=== PATIENT | male | born 1960 | race Caucasian/White ===

== ENCOUNTER 2020-03-23 10:29 | Outpatient (REF) | payer MEDICAID, SELFPAY ==
--- NOTE | 2020-03-23 10:41 | MR_ITS ---
EXAMINATION: MR KNEE WITHOUT CONTRAST, RIGHT CLINICAL INFORMATION: Right knee pain COMPARISON: Radiographs 03/06/2020 TECHNIQUE: MRI of the knee without contrast was performed using routine sequences on a high-field scanner. FINDINGS: MENISCI: Medial Meniscus: Complex tear of the meniscal body with irregular horizontal tearing extending along the posterior horn Lateral Meniscus: Peripheral degeneration/fraying at the root of the anterior horn. LIGAMENTS: Cruciate: Longitudinal partial tearing along the medial aspect of the distal PCL. The anterior cruciate ligament appears intact. Collateral: Intact. MCL bursitis versus extension of the Seymour's cyst. EXTENSOR MECHANISM: Intact ARTICULAR CARTILAGE/BONE: Patellofemoral Compartment: Mild cartilage thinning and surface irregularity of the medial patellar facet and central patella. Medial Compartment: Cartilage thinning and surface irregularity throughout the weightbearing aspect. Small marginal osteophytes. Degenerative cysts at the anterior and posterior aspects of the tibia. Lateral Compartment: Normal JOINT FLUID AND BURSAE: Small joint effusion. There is a moderately sized Seymour's cyst with synovitis, extending distally deep to the pes anserinus. IMPRESSION: Complex tearing of the medial meniscus body with irregular horizontal tearing extending along the posterior horn. Moderate medial and mild patellofemoral compartment osteoarthritis small joint effusion. There is a moderately sized Seymour's cyst with synovitis extending distally deep to pes anserinus. MCL bursitis. Longitudinal partial tear of the distal PCL.
== END 2020-03-23 10:30 | disposition home or self-care (01) ==
LOC: HO.MRI 10:29
PROVIDERS: Visit Provider Orthopaedic Surgery
DX: S83.231A Complex tear of medial meniscus, current injury, right knee, initial encounter (principal); X58.XXXA Exposure to other specified factors, initial encounter; Y93.9 Activity, unspecified; Y92.9 Unspecified place or not applicable; Y99.9 Unspecified external cause status
CPT/HCPCS: 73721

== ENCOUNTER → 2020-04-04 14:28 | Outpatient (BNVA) | payer MEDICAID, SELFPAY | PROVIDERS: PCP Emergency Medicine; Referring Provider Emergency Medicine; Visit Provider Orthopaedic Surgery | DX: S83.231A Complex tear of medial meniscus, current injury, right knee, initial encounter (principal); M17.11 Unilateral primary osteoarthritis, right knee | CPT/HCPCS: 99214 ==

== ENCOUNTER → 2020-05-09 11:47 | Outpatient (BNVA) | payer MEDICAID, SELFPAY | PROVIDERS: PCP Emergency Medicine; Referring Provider Emergency Medicine; Visit Provider Physician Assistant | DX: Z76.89 Persons encountering health services in other specified circumstances (principal) ==

== ENCOUNTER → 2020-05-23 12:27 | Outpatient (BNVA) | payer MEDICAID, SELFPAY | PROVIDERS: Visit Provider Internal Medicine Cardiovascular Disease | DX: Z01.810 Encounter for preprocedural cardiovascular examination (principal); I77.71 Dissection of carotid artery | CPT/HCPCS: 93005; 99202 ==

== ENCOUNTER → 2020-07-03 12:59 | Outpatient (REF) | payer MEDICAID, SELFPAY ==
--- NOTE | 2020-07-03 13:01 | CA_ITS ---
Transthoracic Echocardiogram Patient (Last, First, Middle): Roger Muller, Gender: Male Date of : 1960 Age: 60 Procedure Date: 07/03/2020 Procedure Type: Transthoracic Echocardiogram Location: OP Height: 177.8 cm Weight: 97.52 kg BSA: 2.15 m2 Heart Rate: bpm BP: 130 / 90 mmHg Skirt Maker: LAKESHIA Gonzales MD: Alton Drew MD Resident Services Director: Xander Hand MD Symptoms: Z01.810 - Encounter for preprocedural cardiovascular examination Study Quality: Good ECG Rhythm: Sinus Conclusions: - Essentially normal study Findings Left Ventricle Normal left ventricular size, thickness, and systolic function. The visually estimated ejection fraction is between 60-65%. Diastolic function is normal for age. Right Ventricle Normal right ventricular cavity size and systolic function. Atria Both atria are normal in size. There is lipomatous hypertrophy of the interatrial septum. Interatrial shunt cannot be excluded. Aortic Valve Normal aortic valve structure and function. There is no aortic valve stenosis. There is no aortic valve regurgitation. Mitral Valve Normal mitral valve structure and function. There is trace mitral valve regurgitation. There is no mitral valve stenosis. Pulmonic Valve The pulmonic valve was not well visualized. Tricuspid Valve Normal tricuspid valve structure. There is trace tricuspid valve regurgitation. The right ventricular systolic pressure is normal. The right ventricular systolic pressure is 19 mmHg. Normal right atrial pressure. There is no evidence of pulmonary hypertension. Great Vessels All visible segments of the aorta are normal in size. The pulmonary artery was not well visualized. Venous The inferior vena cava is normal in size and collapses greater than 50% with inspiration. Pericardium/Pleural There is no evidence of pericardial effusion. Prior Study Comparison No prior study available for comparison. Measurements 2D Linear Measurements IVSd: 0.98 0.6-0.9/0.6-1.0 cm LVIDd: 4.61 3.9-5.3/4.2-5.9 cm LVIDd Index: 2.14 2.4-3.2/2.2-3.1 cm/m2 LVIDs: 3.26 2.0-3.6 cm LVPWd: 0.97 0.7-1.1 cm Ao Root: 3.70 2.1-3.5 cm LA Diam: 3.70 2.7-3.8/3.0-4.0 cm LAIDs Index: 1.72 1.5-2.3 cm/m2 LV Mass: 191.43 67-162/88-224 g LV Mass Index: 89.04 43-95/49-115 g/m2 LVOT Diam: 2.30 3.0+(-)1.3 cm 2D Systolic Function EF 4C: 64.80 >55% EF 2C: 57.60 >55% EF BiP: 62.50 >55% Mitral Valve MV Pk E: 0.83 MV PK A: 0.62 MV Decel Time: 312.00 E/A: 1.30 E'Lateral: 11.30 E'Medial: 8.81 E/E' Med: 9.40 E/E' Lat: 7.40 PHT: 91.00 MVA PHT: 2.42 Decel Conway: 2.67 Aortic Valve AoV Pk Faraz: 1.36 AoV Mn Faraz: 0.90 AoV VTI: 0.33 AoV Pk Grad: 7.00 Aov Mn Grad: 4.00 HO Cont.VTI: 3.16 LVOT LVOT Pk Faraz: 1.11 LVOT Mn Faraz: 0.69 LVOT VTI: 0.25 LVOT Pk Grad: 5.00 LVOT Mn Grad: 2.00 LVOT Diam: 2.30 LVOT Area: 4.15 Diastolic Function MV Pk E: 0.83 MV Pk A: 0.62 E/A: 1.30 E'Medial: 8.81 E/E' Med: 9.40 E' Laterial: 11.30 E/E' Lat: 7.40 Tricuspid Valve TR Pk Faraz: 2.01 TR Pk Grad: 16.00 RA Press: 3.00 RVSP: 19.00 Great Vessels Aorta Ao Root-2D: 3.70 2.0-3.7 cm Ao Asc: 3.50 2.1-3.4 cm Ao Arch: 3.00 Updated in Other Vendor System with Status of Final Xander Hand MD electronically signed on 07/04/2020 9:42:38 AM with status of Final
== END ==
LOC: HO.CARD 12:59
PROVIDERS: Visit Provider Internal Medicine Cardiovascular Disease
DX: Z01.810 Encounter for preprocedural cardiovascular examination (principal)
CPT/HCPCS: 93306

== ENCOUNTER → 2020-07-06 12:36 | Outpatient (BNVA) | payer MEDICAID, SELFPAY | PROVIDERS: Visit Provider Physician Assistant | DX: Z76.89 Persons encountering health services in other specified circumstances (principal) ==

== ENCOUNTER → 2020-08-09 06:07 | Day surgery (SDC) | payer MEDICAID, SELFPAY ==
[2020-06-26 08:50] VITALS: BMI 30.8
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
--- NOTE | 2020-08-09 06:38 | PC.NURSE ---
pt to preop large open area to back of operative knee with scabbed areas and scratches also noted to same knee. informed Dr. Mcghee surgery cancelled. pt upset state will be going to his office. Dr informed pt very upset about being cancelled feels no one is helping him.
== END ==
PROVIDERS: Visit Provider Orthopaedic Surgery
DX: S83.241A Other tear of medial meniscus, current injury, right knee, initial encounter (principal); M17.11 Unilateral primary osteoarthritis, right knee; Z53.9 Procedure and treatment not carried out, unspecified reason

== ENCOUNTER → 2020-11-06 11:16 | Outpatient (BNVA) | payer MEDICAID, SELFPAY | PROVIDERS: Visit Provider Physician Assistant | DX: Z12.11 Encounter for screening for malignant neoplasm of colon (principal); R21 Rash and other nonspecific skin eruption | CPT/HCPCS: 99212 ==

== ENCOUNTER 2020-11-16 09:41 | Outpatient (RCR) | payer MEDICAID, SELFPAY | END 2020-11-21 12:18 | disposition home or self-care (01) | LOC: HO.WCC 09:41 | PROVIDERS: Visit Provider Physician Assistant | DX: L02.415 Cutaneous abscess of right lower limb (principal); M71.21 Synovial cyst of popliteal space [Baker], right knee; R60.0 Localized edema; F17.210 Nicotine dependence, cigarettes, uncomplicated | CPT/HCPCS: 99212 ==

== ENCOUNTER 2021-02-21 07:55 | Outpatient (RCR) | payer MEDICAID, SELFPAY | END 2021-04-19 12:24 | disposition home or self-care (01) | LOC: HO.WCC 07:55 | PROVIDERS: PCP General Practice; Visit Provider Surgery | DX: Z09 Encounter for follow-up examination after completed treatment for conditions other than malignant neoplasm (principal); M71.21 Synovial cyst of popliteal space [Baker], right knee; L20.89 Other atopic dermatitis; M50.00 Cervical disc disorder with myelopathy, unspecified cervical region; F17.210 Nicotine dependence, cigarettes, uncomplicated | CPT/HCPCS: 11042; 99203; 99213 ==

== ENCOUNTER 2021-05-29 08:58 | Outpatient (RCR) | payer MEDICARE, MEDICAID, SELFPAY | END 2021-06-10 11:07 | disposition home or self-care (01) | LOC: HO.WCC 08:58 | PROVIDERS: PCP General Practice; Visit Provider Physician Assistant | DX: S00.412A Abrasion of left ear, initial encounter (principal); B02.7 Disseminated zoster; I10 Essential (primary) hypertension; F17.210 Nicotine dependence, cigarettes, uncomplicated; Z79.2 Long term (current) use of antibiotics | CPT/HCPCS: 99212 ==

== ENCOUNTER 2024-05-23 18:03 | Outpatient (REF) | payer MEDICARE, MEDICAID, SELFPAY ==
[2024-05-23 18:27] LABS: Barbiturates, Urine Not Detected (Not Detect)
== END 2024-05-23 18:04 | disposition home or self-care (01) ==
LOC: HO.HHCLNP 18:03
PROVIDERS: Visit Provider General Practice
DX: G89.29 Other chronic pain (principal)
CPT/HCPCS: 80307

== ENCOUNTER 2025-02-10 10:07 | Outpatient (REF) | payer MEDICARE, OTHER, SELFPAY ==
--- NOTE | ~2025-02-10 | XR_ITS ---
EXAMINATION: XR KNEE, LEFT CLINICAL INFORMATION: M25.569 - Pain in unspecified knee COMPARISON: Correlated to x-ray dated March 06, 2020 TECHNIQUE: AP in standing position both knees. Lateral and sunrise views of the left knee. FINDINGS: Joint space narrowing sclerosis along the articular surface involving the medial compartment of the right knee. Small marginal osteophyte formation lateral femoral condyle and lateral tibial plateau. Left knee demonstrates no acute cortical disruption or malalignment. No gross suprapatellar bursa joint effusion. Mild joint space narrowing involving the medial and lateral compartment. No lytic or blastic lesions. XR/XR knee LT 3V IMPRESSION: Moderate bicompartmental osteoarthrosis/osteoarthritis involving mostly the medial compartment right knee. Worsened since prior exam. Mild, bicompartmental osteoarthrosis/osteoarthritis, left knee Electronically signed by: Ervin [place] MD 02/10/2025 12:15 PM EDT
--- OUTSIDE RECORDS SUMMARY | 2025-02-13 11:11 | XMS_ITS | Encounter Summary ---
Author Organization [employer] Address [address] [place] [address] Care Team Providers Care Mgmt Analyst Name Role Phone Natalie Baxter MD Primary Care Provider [phone] Reason for Visit * Reason Comments Med Refill Encounter Details Date Type Department Care Team ([facility] Contact Info) Description 01/15/2024 Refill [facility] [address] [place], [place] [phone] Natalie Baxter MD [address] [place], [place] [phone] Social History Tobacco Use Types Packs/Day Years [...] Description 02/21/2025 10:00 AM EDT Clinical Support [facility] [address] [place] [address] Odilia Reynoso RN documented as of this encounter Visit Diagnoses Not on filedocumented in this encounter Care Teams Mgmt Analyst Relationship Specialty Start Date End Date Natalie Baxter MD [address] [place] [address] PCP - General Family Medicine 04/26/20 documented as of this encounter
--- OUTSIDE RECORDS SUMMARY | 2025-02-13 11:12 | XMS_ITS | Clinical Summary ---
Author Organization [employer] [facility] Address [address] [place] [address] Care Team Providers Care Hr Recruiter Name Role Phone Natalie Baxter MD Primary Care Provider [phone] Encounters Date Type Department Care Team Description 11/30/[address] [place] [address] Natalie Baxter MD 11/23/[address] [place] [phone] Natalie Baxter MD 11/21/[address] [place] [address] Physician, Pcp Unknown from Last [...] age to complete this topic Care Teams Hr Recruiter Relationship Specialty Start Date End Date Natalie Baxter MD [address] [place] [id number] PCP - General Optical Instrument Specialist 11/23/24
== END 2025-02-10 10:08 | disposition home or self-care (01) ==
LOC: HO.HOSX 10:07
PROVIDERS: Visit Provider Physician Assistant
DX: M17.0 Bilateral primary osteoarthritis of knee (principal); M25.562 Pain in left knee
CPT/HCPCS: 20610; 73562; J1010; J2003

== ENCOUNTER 2025-02-10 11:39 | Outpatient (AMB) | payer BC, MEDICAID, SELFPAY ==
--- OUTSIDE RECORDS SUMMARY | 2024-09-22 13:08 | XMS_ITS ---
Author Name [facility] [place] [facility] [place] [facility] [place] Address [address] [place] [address] Care Team Providers Care Ditching Machine Engineer Name Role Phone ONURFARHANA VEGALATAPIERRE Primary Care Provider Unavailab MICHELLE Tracy Primary Care Provider Unavail able Insurance Providers: All historical and current Section Date Range: From patient's date of to the date document was created. This section includes the names of all active insurance providers for the patient. Insurance Provider Type of Coverage Plan Name Start of Policy Coverage End of Policy Coverage Group Number Member ID Insurance Provider's Telephone Number Policy Waterman's Name Patient's Relationship to Policy Waterman [facility] (MEDICAID) MEDICAID PREMI UM ERICA MCGRATH Jun 22, 2014 [id number] Zoe GUERRERO ERRY PATIENT MEDICAID MEDICAID [facility] Mar 22, 2015 MEDICAI D [id number] Zoe GUERRERO ERRY PATIENT MEDICARE (WNR) MEDICARE (M) PART A Apr 22, 2021 PART A [id number] Zoe GUERRERO ERRY PATIENT MEDICARE (WNR) MEDICARE (M) PART B Apr 22, 2021 PART B [id number] Zoe GUERREROY PATIENT Selected Encounter This section includes the information on record at [place] for the Encounter. Date/Time Encounter Type Encounter Description Reason Pro vider Source Sep 22, 2024 05:08 PM Outpatient Encounter ADMIN PAT ACTIVTIES (MASNONCT) IHE Encounter Template Text not used by [place] Plan of Treatment: Future Appointments (+ 6 months) and Future Tests (+/- 45 days) The Plan of Treatment section includes future care activities for the patient from all [place] treatmentfacilities. This section includes future appointments and future orders which are active, pending or scheduled. Future Appointments This section includes appointments that were scheduled to occur 6 months from the date of the Encounter, up to a maximum of 20 appointments. The data comes from all [place] treatment facilities. Appointment Date/Time Appointment Type Appointme nt Facility Name October 31, 2024 11:00 AM AMBULATORY - MEDICINE [facility] Social History: Smoking Status (Most current) and Tobacco Use (All prior to encounter date) This section includes the most current, and the historical, smoking and tobacco- related health factors from the [place] facility where the Encounter took place. Current Smoking Status This section includes the most current smoking, or tobacco-related health factor, from the [place] facility where the Encounter took place. Date/Time Current Smoking Status Comment [facility] May 11, 2023 12:03 PM VA-TOBACCO USER EVERY DAY [place] [facility] [place] [facility] Tobacco Use History This section includes a history of the smoking, or tobacco-related health factors, that were collected on or before the date of the Encounter. The data comes from the [place] facility where the Encounter took place. Date/Time Smoking Status/Tobac co Use Comment Facility May 11, 2023 12:03 PM VA-TOBACCO USE 30 YEARS OR MORE [place] [facility] [place] [facility] May 11, 2023 12:03 PM VA-TOBACCO USE ADVICE [place] [facility] [place] [facility] May 11, 2023 12:03 PM VA-TOBACCO USE HELP DESK OPERATOR NO [place] [facility] [place] [facility] May 11, 2023 12:03 PM VA-TOBACCO USE MED NOTIFY PROVIDER would like 21 MG patches [place] [facility] [place] [facility] May 11, 2023 12:03 PM VA-TOBACCO USER EVERY DAY [place] [facility] [place] [facility] Feb 09, 2019 09:39 AM VA-TOBACCO USE > 15 LESS THAN 30 YEARS [facility] Feb 09, 2019 09:39 AM VA-TOBACCO USE ADVICE [facility] Feb 09, 2019 09:39 AM VA-TOBACCO USE HELP DESK OPERATOR NO [facility] Feb 09, 2019 09:39 AM VA-TOBACCO USE MED YES [facility] Feb 09, 2019 09:39 AM VA-TOBACCO USE WI 30 MIN OF WAKEUP [facility] Feb 09, 2019 09:39 AM VA-TOBACCO USER EVERY DAY [facility] Advance Directives: All historical and current Section Date Range: From patient's date of to the date document was created. This section includes ALL of a patient's completed or amended [place] Advance and Rescinded Directives. The entries below indicate that a directive exists for the patient, but an actual copy is not included with this document. The data comes from all [place] facilities. Date Advance Directives Provider Source Feb 17, 2024 ADVANCE DIRECTIVE DISCUSSION F[facility]ED [facility] November 18, 2023 ADVANCE DIRECTIVE DISCUSSION FAREED [facility] Dec 07, 2019 ADVANCE DIRECTIVE LAURA CRUZ [facility] Dec 31, 2017 ADVANCE DIRECTIVE DISCUSSION OVIDIO LAZO [facility] Aug 13, 2015 ADVANCE DIRECTIVE DOMITILA WATTS [facility] Jul 24, 2015 ADVANCE DIRECTIVE PENG SHERIFF [facility] Encounter Notes: All associated encounter notes This section contains the clinical notes associated to the Encounter. Date/Time Encounter Note(s) Provider Source Sep 23, 2024 09:55 AM ADDENDUM: LOCAL TITLE: Addendum STANDARD TITLE: ADDENDUM DATE OF NOTE: SEP 23, 2024@09:55:11 ENTRY DATE: SEP 23, 2024@09:55:12 AUTHOR: ELISE MELGAR EXP COSIGNER: URGENCY: STATUS: COMPLETED Adding AMSA to call and schedule for PCP appt. /sony MELGAR RN REGISTERED NURSE Signed: 09/23/2024 09:55 Receipt Acknowledged By: 09/26/2024 10:18 /sony [employer] SALES REPRESENTATIVE ========= --- Original Document --- 09/22/24 V1 PHARMACY CUSTOMER CARE MEDICATION RENEWAL: Date: Sep Division: [facility] referred by Pharmacy Call Center for medication renewal: Non-controlled/maintena nce medication Medications requested: [id number] TIZANIDINE HCL 2MG TAB Defer to primary care provider To be mailed . Please review and renew if appropriate. *This note was generated by [facility] Customer [facility]. If you have any questions or need assistance, do not contact this author. Please refer all questions to your local, on-site pharmacy departments. /lily/ CARLEY BARBOUR CPhT [place], [place]/Pharmacy Customer Care Signed: 09/22/2024 17:09 Receipt Acknowledged By: 09/23/2024 07:55 /lily/ TARSHA MCCORD CERTIFIED NURSE PRACTITIONER 09/23/2024 09:24 /sony MELGAR RN REGISTERED NURSE 09/23/2024 ADDENDUM STATUS: COMPLETED Denied, has not been seen since 2022. Would need visit to determine if medication still appropriate. /lily/ TARSHA MCCORD CERTIFIED NURSE PRACTITIONER Signed: 09/23/2024 07:55 Receipt Acknowledged By: 09/23/2024 09:55 /sony MELGAR RN REGISTERED NURSE 09/23/2024 ADDENDUM STATUS: COMPLETED LM ON VM TO SCHEDULE APPT /sony [employer] SALES REPRESENTATIVE Signed: 09/23/2024 14:09 ELISE MELGAR [facility] [place] [facility] Sep 23, 2024 07:55 AM ADDENDUM: LOCAL TITLE: Addendum STANDARD TITLE: ADDENDUM DATE OF NOTE: SEP 23, 2024@07:55:16 ENTRY DATE: SEP 23, 2024@07:55:18 AUTHOR: PIERRE DIA EXP COSIGNER: URGENCY: STATUS: COMPLETED Denied, has not been seen since 2022. Would need visit to determine if medication still appropriate. /lily/ TARSHA MCCORD CERTIFIED NURSE PRACTITIONER Signed: 09/23/2024 07:55 Receipt Acknowledged By: 09/23/2024 09:55 /lily/ ELISE MELGAR RN REGISTERED NURSE ========= --- Original Document --- 09/22/24 V1 PHARMACY CUSTOMER CARE MEDICATION RENEWAL: Date: Sep Division: [place] [facility] referred by Pharmacy Call Center for medication renewal: Non-controlled/maintena nce medication Medications requested: [id number] TIZANIDINE HCL 2MG TAB Defer to primary care provider To be mailed . Please review and renew if appropriate. *This note was generated by [facility] Customer [facility]. If you have any questions or need assistance, do not contact this author. Please refer all questions to your local, on-site pharmacy departments. /lily/ CARLEY BARBOUR CPhT [place]/Pharmacy Customer Care Signed: 09/22/2024 17:09 Receipt Acknowledged By: 09/23/2024 07:55 /TARSHA Mosquera CERTIFIED NURSE PRACTITIONER 09/23/2024 09:24 /lily/ ELISE MELGAR RN REGISTERED NURSE 09/23/2024 ADDENDUM STATUS: UNSIGNED You may not VIEW this UNSIGNED Addendum. PIERRE DIA [place] [facility] [place] [facility] Sep 22, 2024 05:08 PM PHARMACY NOTE: LOCAL TITLE: V1 PHARMACY CUSTOMER CARE MEDICATION RENEWAL STANDARD TITLE: PHARMACY NOTE DATE OF NOTE: SEP 22, 2024@17:08 ENTRY DATE: SEP 22, 2024@17:08:57 AUTHOR: CARLEY BARBOUR EXP COSIGNER: URGENCY: STATUS: COMPLETED V1 PHARMACY CUSTOMER CARE MEDICATION RENEWAL Has ADDENDA Date: Sep Division: [facility] referred by Pharmacy Call Center for medication renewal: Non-controlled/maintena nce medication Medications requested: [id number] TIZANIDINE HCL 2MG TAB Defer to primary care provider To be mailed . Please review and renew if appropriate. *This note was generated by [facility] Customer [facility]. If you have any questions or need assistance, do not contact this author. Please refer all questions to your local, on-site pharmacy departments. /sony BARBOUR CPhT [place]/[facility]armacy Customer Care Signed: 09/22/2024 17:09 Receipt Acknowledged By: 09/23/2024 07:55 /TARSHA Mosquera CERTIFIED NURSE PRACTITIONER 09/23/2024 09:24 /lily/ ELISE MELGAR RN REGISTERED NURSE 09/23/2024 ADDENDUM STATUS: COMPLETED Denied, has not been seen since 2022. Would need visit to determine if medication still appropriate. /TARSHA Mosquera CERTIFIED NURSE PRACTITIONER Signed: 09/23/2024 07:55 Receipt Acknowledged By: 09/23/2024 09:55 /lily/ ELISE MELGAR RN REGISTERED NURSE 09/23/2024 ADDENDUM STATUS: COMPLETED Adding AMSA to call and schedule [place] for PCP appt. /lily/ ELISE MELGAR RN REGISTERED NURSE Signed: 09/23/2024 09:55 Receipt Acknowledged By: 09/26/2024 10:18 /lily/ BOB [employer] SALES REPRESENTATIVE 09/23/2024 ADDENDUM STATUS: COMPLETED LM ON VM TO SCHEDULE APPT /lily/ BOB [employer] SALES REPRESENTATIVE Signed: 09/23/2024 14:09 09/26/2024 ADDENDUM STATUS: COMPLETED SCHEDULED APPT WITH PACT 8 FOR 5-12 FOR 60 MIN /sony [employer] SALES REPRESENTATIVE Signed: 09/26/2024 10:19 CARLEY BARBOUR [place] [facility]
--- OUTSIDE RECORDS SUMMARY | 2025-02-05 23:59 | XMS_ITS | Continuity of Care Document ---
Author Organization [facility] Address [address] [place] [address]- Care Team Providers Care Documentation Consultant Name Role Phone Natalie Baxter MD Primary Care Physician [place] [facility]): 01/06[place]25 - 02/05/25 [facility] [address] [place] [address]- Attending Physician: Avani Guerrero Admitting Physician: Avani Guerrero Referring Physician: AdmtrAvani Encounter Type: Triage Allergies, Adverse Reactions, Alerts No Known Allergies Medications acetaminophen-hydrocodone 300 mg-10 mg oral tablet 1 tablet, By Mouth, Every 12 hours, PRN as needed for pain, 0 Refills, Maintenance, 05/02/24 2:38:00 PM EST, Tablet, Partial fill upon patient request if the prescription is for a schedule II opioid drug. Start Date: 05/02/24 Status: Ordered Repeat number: 1 aspirin 81 mg oral delayed release tablet 1 tablet = 81 mg, By Mouth, Daily, # 30 tablet, 3 Refills, Maintenance, 05/03/24 9:35:00 AM EST, ECTablet, [facility], Partial fill upon patient request if the prescription is for a schedule II opioid drug., 178, cm, 05/03/24 1:54:00 EST, Height, 108, kg, 05/02/24 12:37:00 EST, Dry Weight Start Date: 05/03/24 Stop Date: 08/31/24 Status: Ordered Quantity: 30.0 Unit: tablet Repeat number: 4 atorvastatin 80 mg oral tablet 1 tablet = 80 mg, By Mouth, Daily, # 30 tablet, 3 Refills, Maintenance, 05/03/24 9:35:00 AM EST, Tablet, [facility], Partial fill upon patient request if the prescription is for a schedule II opioid drug., 178, cm, 05/03/24 1:54:00 EST, Height, 108, kg, 05/02/24 12:37:00 EST, Dry Weight Start Date: 05/03/24 Stop Date: 08/31/24 Status: Ordered Quantity: 30.0 Unit: tablet Repeat number: 4 baclofen 10 mg oral tablet 10 mg, 1, tablet, By Mouth, 3 times a day, # 270 tablet, Refills 0, Maintenance, 11/18/19 9:16:00 AMEDT Start Date: 11/18/19 Status: Ordered Quantity: 270.0 Unit: tablet Repeat number: 1 lisinopril 20 mg oral tablet 20 mg, 1, tablet, By Mouth, Daily, # 30 tablet, Refills 3, Tot. Refills 3, Maintenance, 05/03/24 9:34:00 AM EST, Route to Pharmacy Electronically, [facility], Partial fill upon patient request if the prescription is for a schedule II opioid drug., 178, cm, 05/03/24 1:54:00 EST, Height, 108, kg, 05/02/24 12:37:00 EST, Dry Weight Start Date: 05/03/24 Stop Date: 08/31/24 Status: Ordered Quantity: 30.0 Unit: tablet Repeat number: 4 metoprolol 25 mg oral tablet, extended release 25 mg, 1, tablet, By Mouth, Daily, # 30 tablet, Refills 3, Tot. Refills 3, Maintenance, 05/03/24 9:38:00 AM EST, Route to Pharmacy Electronically, [facility], Partial fill upon patient request if the prescription is for a schedule II opioid drug., 178, cm, 05/03/24 1:54:00 EST, Height, 108, kg, 05/02/24 12:37:00 EST, Dry Weight Start Date: 05/03/24 Status: Ordered Quantity: 30.0 Unit: tablet Repeat number: 4 pregabalin 50 mg oral capsule 1 capsule = 50 mg, By Mouth, 3 times a day, # 90 capsule, 0 Refills, Maintenance, 11/18/19 9:15:00 AM EDT, Capsule Start Date: 11/18/19 Status: Ordered Quantity: 90.0 Unit: capsule Repeat number: 1 primidone 50 mg oral tablet 50 mg, 1, tablet, By Mouth, Daily at bedtime, # 15 tablet, Refills 0, Maintenance, 05/03/24 5:16:00AM EST, Partial fill upon patient request if the prescription is for a schedule II opioid drug. Start Date: 05/03/24 Status: Ordered Quantity: 15.0 Unit: tablet Repeat number: 1 ticagrelor 90 mg oral tablet 1 tablet = 90 mg, By Mouth, 2 times a day, # 60 tablet, 3 Refills, Maintenance, 05/03/24 9:35:00 AMEST, Tablet, [facility], Partial fill upon patient request if the prescription is fora schedule II opioid drug., 178, cm, 05/03/24 1:54:00 EST, Height, 108, kg, 05/02/24 12:37:00 EST, Dry Weight Start Date: 05/03/24 Status: Ordered Quantity: 60.0 Unit: tablet Repeat number: 4 tiZANidine 2 mg oral tablet 2 mg, 1, tablet, By Mouth, Every 8 hours, PRN, # 90 tablet, Refills 0, Maintenance, as needed for muscle spasm, 11/18/19 9:15:00 AM EDT Start Date: 11/18/19 Status: Ordered Quantity: 90.0 Unit: tablet Repeat number: 1 Problem List Condition Confirmation Course Effective Dates Status H ealth Status Informant Alcohol use disorder Confirmed Active Carotid artery stenosis Confirmed Active Chronic pain Confirmed Active Hyperlipidemia Confirmed Active Hypertension Confirmed Active STEMI (ST elevation myocardial infarction) Confirmed Active Osteoarthritis Confirmed Active Tobacco use disorder Confirmed Active Tremor, unspecified Confirmed Active Social History Social History Type Response Tobacco Use: Intermittent sm oker, avg less than 0.5 pack daily since the age of 4. Sex Sex Representation Male (finding) Patient Care team information Care Team Personnel Name: Imelda Young RN Position: S RN Member Role: Primary Care Nurse Name: Georgia Dean RN Position: S RN Member Role: Primary Care Nurse Name: Cinthya Molina RN Position: S RN Member Role: Primary Care Nurse Name: Natalie Baxter MD Position: S Physician - Primary Care Member Role: PCP Address: [address] [place] [address], [address] Telecom: Care Team Related Persons Name: UNKNOWN, RAFAELA Insurance Providers Guarantor name: MELODY Health Plan Information #: 1 Payer: [facility] Payer Identifier: NA Member Number: [id number] Group Number: [id number] Subscriber Identifier: [id number] Relationship to Subscriber: self Coverage Type: Medicare PPO Coverage Verification Date: NA Telecom: NA Address: Health Plan Information #: 2 Payer: [employer] Payer Identifier: NA Member Number: [id number] Group Number: Subscriber Identifier: [id number] Relationship to Subscriber: self Coverage Type: MEDICAID Coverage Verification Date: NA Telecom: NA Address:
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
--- OUTSIDE RECORDS SUMMARY | 2025-02-10 11:42 | XMS_ITS | Encounter Summary ---
Author Organization [employer] Address [address] [place] [address] Care Team Providers Care Tooth Cutter Spur Name Role Phone Natalie Baxter MD Primary Care Provider [phone] Reason for Visit * Reason Comments Med Refill Encounter Details Date Type Department Care Team ([facility] Contact Info) Description 01/15/2024 Refill [facility] [address] [place], [place] [phone] Natalie Baxter MD [address] [place], [place] [phone] Social History Tobacco Use Types Packs/Day Years Used Date Smoking Tobacco: Every Day Cigarettes Passive Smoke Exposure: Current Smokeless Tobacco: Never Comments:Half a pack a day. Alcohol Use Standard Drinks/Week Comments Yes 2 (1 standard drink = 0.6 oz pur e alcohol) Occasionally Housing Stability Answer Date Recorded What is your housing situation today? I have patrick odom 10/30/[address] you li ve. Do you have problems with any of the following? None of the above 10/30/2023 Food Insecurity Answer Date Recorded Within the past 12 months, y ou worried that your food would run out before you got money to buy more: Never True 10/30/2023 Within the past 12 months,th e food you bought just didn't last and you didn't have enough money to get more: Never True 03/2024 Transportation Answer Date Recorded In the past 12 months, has l ack of transportation kept you from medical appts, meetings, work or from getting things needed for daily living? No 10/30/2023 Utilities Answer Date Recorded In the past 12 months, has t he electric, gas, oil or water company threatened to shut off services in your home? No 10/30/2023 Depression Answer Date Recorded Patient Health Questionnaire-2 Score 0 08/29/2022 Sex and Gender Information Value Date Recorded Sex Assigned at Male 04/21/2022 10:37 AM EDT Legal Sex Male 10:37 AM EDT Gender Identity Male 04/21/2022 10:37 AM EDT Sexual Orientation Choose not to disclose 2021 10:37 AM EDT documented as of this encounter Plan of Treatment Upcoming Encounters Date Type Department Care Team (Late st Contact Info) Description 02/21/2025 10:00 AM EDT Clinical Support [facility] [address] [place] [address] Odilia Reynoso RN documented as of this encounter Visit Diagnoses Not on filedocumented in this encounter Care Teams Tooth Cutter Spur Relationship Specialty Start Date End Date Natalie Baxter MD [address] [place] [address] PCP - General Family Medicine 04/26/20 documented as of this encounter
--- OUTSIDE RECORDS SUMMARY | 2025-02-10 11:43 | XMS_ITS | Clinical Summary ---
Author Organization [employer] [facility] Address [address] [place] [address] Care Team Providers Care Strategic Communications Manager Name Role Phone Natalie Baxter MD Primary Care Provider [phone] Encounters Date Type Department Care Team Description 11/30/[address] [place] [address] Natalie Baxter MD 11/23/[address] [place] [phone] Natalie Baxter MD 11/21/[address] [place] [address] Physician, Pcp Unknown from Last 3 Months Social History Tobacco Use Types Packs/Day Years Used Date Smoking Tobacco: Never Assessed Sex and Gender Information Value Date Recorded Sex Assigned at Not on file Legal Sex Male 11:48 PM EST Gender Identity Not on file Sexual Orientation Not on file Plan of Treatment Health Maintenance Due Date Last Done Comments DTaP,Tdap,and Td Vaccines (1 - Tdap) 1977 Pneumococcal Vaccine: 50+ Ye ars (1 of 1 - PCV) 2008 Zoster Vaccines (1 of 2) 2008 COVID-19 Vaccine ( - 2023-2 5 season) 2024 Depression Screening 06/22/2024 Abdominal Aortic Aneurysm (A AA) Screen 11/21/2024 Cholesterol Screening (Lipid Panel) 11/21/2024 Colorectal Cancer Screening: Colonoscopy 11/21/2024 Falls Risk Assessment 11/21/2024 Hepatitis C Screening 11/21/2024 Social Influencers of Health Screening 11/21/2024 Influenza Vaccine (#1) 2025 RSV Immunization Adult Patie nts (1 - 1-dose 75+ series) 2033 HIB Vaccines Aged Out No longer eligi ble based on patient's age to complete this topic HPV Vaccines Aged Out No longer eligi ble based on patient's age to complete this topic Hepatitis A Vaccines Aged Out No long er eligible based on patient's age to complete this topic Hepatitis B Vaccines Aged Out No long er eligible based on patient's age to complete this topic IPV Vaccines Aged Out No longer eligi ble based on patient's age to complete this topic MMR Vaccines Aged Out No longer eligi ble based on patient's age to complete this topic Meningococcal ACWY Vaccine Aged Out N o longer eligible based on patient's age to complete this topic Meningococcal B Vaccine Aged Out No l onger eligible based on patient's age to complete this topic RSV Immunization Patients Un ezio 20 months Aged Out No longer eligible b ased on patient's age to complete this topic Varicella Vaccines Aged Out No longer eligible based on patient's age to complete this topic Care Teams Strategic Communications Manager Relationship Specialty Start Date End Date Natalie Baxter MD [address] [place] [address] PCP - General Rubber Goods Supervisor 11/23/24
[2025-02-10 12:08] VITALS: BMI 30.4
== END 2025-02-10 12:51 | disposition home or self-care (01) ==
LOC: HO.HOS 11:40
PROVIDERS: PCP General Practice; Visit Provider Physician Assistant
DX: M17.0 Bilateral primary osteoarthritis of knee (principal)
CPT/HCPCS: 20610; 99204

== ENCOUNTER → 2025-02-10 11:44 | Outpatient (BNV) | payer BC, MEDICAID, SELFPAY | PROVIDERS: Visit Provider Radiology Diagnostic Radiology | DX: M17.12 Unilateral primary osteoarthritis, left knee (principal) | CPT/HCPCS: 73562 ==

== ENCOUNTER 2025-02-27 09:03 | Outpatient (AMB) | payer BC, MEDICAID, SELFPAY ==
--- NOTE | 2025-02-27 09:06 | MHC.OFFVIS ---
Vital Signs 02/27/25 09:07 Height 5 ft 10 in Weight 212 lb BMI 30.4 Intake Visit Reasons: OV-Discuss RT knee replacement Intake Note: Roger is a 64 year old male who presents today for a follow up of his Right Knee OA. He was last seen with Yi on 02/10/25 where he received a cortisone injection. He was previously working with [employer] to schedule a Right TKA but is content with his care here and has had his records transferred. - Smoking status : 1/2 Pack a day - cigarettes -Hx of crack/cocaine use Specialists: -[facility] [place] Cardiology: Dr Rajendra Rain intermediate risk, hx of left carotid dissection and pseudoaneurysm formation -Neurology - unknown provider, hx of spinal chord injury Allergies No Known Allergies Allergy (Verified 11/06/20 11:30) HPI HPI OV-Discuss RT knee replacement: Details: Roger is a 64 year old male who presents today for a follow up of his Right Knee OA. He was last seen with Yi on 02/10/25 where he received a cortisone injection. He was previously working with [employer] to schedule a Right TKA but is content with his care here and has had his records transferred. - Smoking status : 1/2 Pack a day - cigarettes -Hx of crack/cocaine use Specialists: -[facility] [place] Cardiology: Dr Rajendra Rain intermediate risk, hx of left carotid dissection and pseudoaneurysm formation -Neurology - unknown provider, hx of spinal chord injury Zulay states that he has been trying to get surgery and/or injections in his right knee for some time but it has been delayed because of his medical history. His medical history includes a heart attack about a year ago as well as a history of carotid dissection. Apparently continues to smoke as well. He had an infection of his leg which does not appear to have been in the joint and appears to have been in the skin and lower leg but I do not have records on any of this. Needless to say he does have complaints of severe knee pain and walks with a limp. He feels the quality of his life is diminished. [facility] Medical History (Updated 02/27/25 @ 12:52 by Prasanth Randle MD) Rash and nonspecific skin eruption Carotid artery dissection Brain bleed Spinal cord injury Surgical History (Updated 02/27/25 @ 12:52 by Prasanth Randle MD) History of colonoscopy H/O hernia repair Stented coronary artery Family History Father No problems noted. Mother No problems noted. Social History (Updated 02/27/25 @ 09:09 by Inga Butcher CMA) Household Members Other:: alone Alcohol intake: former Cigarette Packs Per Day: 0.5 Cigarettes Per Day: 10 Substance Use Type: Crack/Cocaine service: Yes Current occupational status: disabled Current occupation: Right hand Physical Exam Vital Signs: BMI result Body Mass Index 30.4 Extrem Other: Is right knee has well healed scars from prior ?infection?. He has no effusion. It does have tenderness to palpation over the medial compartment with a moderate varus deformity. He has 5-125 degrees of motion. He has a 2+ dorsalis pedis pulse in his skin is intact to light touch. Results Reviewed Results Reviewed: I personally reviewed relevant radiographs. Severe varus pattern right knee osteoarthritis Assessment & Plan Assessment & Plan (1) Osteoarthritis of right knee: Code(s): M17.11 - Unilateral primary osteoarthritis, right knee Category: Medical Plan: This is a 64-year-old gentleman with severe osteoarthritis of the right knee. Injections according to him I have been deferred because of the history of is skin infection. I do not have any records on this and would like to because he does not really explain well what type of infection this was not why it was so chronic but this was present for the last 5 years. In addition he recently had a heart attack (about 9-10 months ago) and is having some sort of test soon to confirm how he is doing. Again I do not have records on this. Lastly he states he has seen a vascular surgeon in the past and I assume this is for the traumatic carotid artery dissection that was treated 4 or 5 years ago. In light of all this he appears to continue smoking which certainly is contraindication to arthroplasty. I have requested to get his records and we will ever nurse navigator help with that but I would not schedule him for surgery until these issues are better clarified. Coding Level of Care Code Est Pt Level 4 (31634) Diagnoses Osteoarthritis of right knee M17.11
[2025-02-27 09:07] VITALS: BMI 30.4
--- OUTSIDE RECORDS SUMMARY | 2025-02-27 10:13 | XMS_ITS | Clinical Summary ---
Author Organization [employer] [facility] Address [address] [place] [address] Care Team Providers Care Medical Field Representative Name Role Phone Natalie Baxter MD Primary Care Provider [phone] Encounters Date Type Department Care Team Description 11/30/2024 Telephone [facility] Cardiology [facility] [address] [place] [address] Natalie Baxter MD from Last 3 Months Social History Tobacco [...] 2008 Zoster Vaccines (1 of 2) 2008 Depression Screening 06/22/2024 Abdominal Aortic Aneurysm (A AA) Screen 11/21/2024 Cholesterol Screening (Lipid Panel) 11/21/2024 Colorectal Cancer Screening: Colonoscopy 11/21/2024 Falls Risk Assessment 11/21/2024 Hepatitis C Screening 11/21/2024 Social Influencers of Health Screening 11/21/2024 COVID-19 Vaccine ( - 2023-2 5 season) 2025 Influenza Vaccine (#1) 2025 RSV Immunization Adult [...] age to complete this topic Care Teams Medical Field Representative Relationship Specialty Start Date End Date Natalie Baxter MD [address] [place] [id number] PCP - General Beach Expert 11/23/24
== END 2025-02-27 09:39 | disposition home or self-care (01) ==
LOC: HO.HOS 09:04
PROVIDERS: Visit Provider Orthopaedic Surgery
DX: M17.11 Unilateral primary osteoarthritis, right knee (principal)
CPT/HCPCS: 99214

== ENCOUNTER 2025-05-16 09:51 | Outpatient (AMB) | payer BC, MEDICAID, SELFPAY ==
--- NOTE | 2025-05-16 10:12 | MHC.OFFVIS ---
Vital Signs 05/16/25 10:18 Height 5 ft 10 in Weight 212 lb BMI 30.4 Intake Visit Reasons: Left Knee Injection - Last 02/10/25 Intake Note: Roger is a 65 year old male who presents today for a repeat injeciton for his left knee, last injection was on 02/10/25. Patient reports his last injection gave him relief and would like to repeat. Allergies No Known Allergies Allergy (Verified 05/16/25 10:18) HPI HPI Left Knee Injection - Last 02/10/25: Details: Mr. Duran is a 65-year-old male who presents to the office today for left knee pain. Patient received a cortisone injection on 02/10/2025 which gave him great relief. He is looking to repeat injection today. [facility] Medical History (Updated 05/16/25 @ 10:15 by Yi Pedroza PA-C) Rash and nonspecific skin eruption Carotid artery dissection Brain bleed Spinal cord injury Surgical History (Updated 02/27/25 @ 12:52 by Prasanth Randle MD) History of colonoscopy H/O hernia repair Stented coronary artery Family History Father No problems noted. Mother No problems noted. Social History Household Members Other:: alone Alcohol intake: former Cigarette Packs Per Day: 0.5 Cigarettes Per Day: 10 Substance Use Type: Crack/Cocaine service: Yes Current occupational status: disabled Current occupation: Right hand Review of Systems Const All systems reviewed & are unremarkable except as noted in HPI and below Physical Exam Vital Signs: BMI result Body Mass Index 30.4 Const General: cooperative, healthy appearing and no acute distress Resp Effort & Inspection: normal respiratory effort and able to speak in complete sentences Extrem Other: Left knee: Mild effusion. Slight tenderness to palpation along the medial and lateral joint lines. Range of motion 10-90 degrees. NVI. Psych Appearance: grossly normal Mental Status: mental status grossly normal Attitude: cooperative Office Procedures AMB Joint Injection/Aspiration Joint Injection/Aspiration Primary Site: Left Knee Prep: site was prepped using aseptic technique, ethochloride spray was applied and injection warnings given Injected: 40 mg of, Decadron, with 3 mL of, 1% plain Lidocaine, 0.25% Bupivacaine and in the joint Approach Used: anterolateral Procedure: The patient tolerated the procedure well, but had some pain with the injection and there was some relief with the local anesthesia Coding 07890 - Large joint Procedure code (CPT) selection complete Assessment & Plan Assessment & Plan (1) Osteoarthritis of left knee: Code(s): M17.12 - Unilateral primary osteoarthritis, left knee Category: Medical Plan The patient was offered a cortisone injection in left knee. The patient was explained the risks, benefits, and alternatives to receiving this injection. After receiving consent for the injection, the patient had the procedure done while in the office today. The patient tolerated the procedure well with no complications. The risks, benefits, and alternatives to a corticosteroid injection were discussed with the patient, including the potential benefits of decreased inflammation and pain, improved function, and diagnostic value. Risks were reviewed, including post-injection flare, skin or fat atrophy, transient facial flushing, temporary elevation in blood glucose, bruising, and rare but serious complications such as infection, tendon weakening or rupture, and cartilage damage with repeated injections. Procedure-related discomfort and possible vasovagal symptoms were also explained. Alternatives were reviewed, including NSAIDs, physical therapy, activity modification, bracing, ice/heat, weight management, hyaluronic acid injections when appropriate, PRP or other orthobiologics, oral steroids, surgery depending on pathology, and observation. The patient verbalized understanding and elected to proceed. After receiving consent for the injection, the patient had the procedure done while in the office today. The patient tolerated the procedure well with no complications. Follow-up will be PRN, or sooner if needed Coding Level of Care Code Est Pt Level 3 (20546) Diagnoses Osteoarthritis of left knee M17.12 CPT Codes Coding - Large joint: 10442 - Large joint ([id number])
[2025-05-16 10:18] VITALS: BMI 30.4
--- OUTSIDE RECORDS SUMMARY | 2025-05-16 11:39 | XMS_ITS | Encounter Summary ---
Author Organization [employer] Address [address] [facility] [address] [place] [address] Care Team Providers Care Rate Clerk Name Role Phone Natalie Baxter MD Primary Care Provider [phone] Reason for Visit * Reason Onset Date Comments Appointment Request 07/18/2022 Encounter Details Date Type Department Care Team ([facility] Contact Info) Description 07/18/2022 Telephone [facility] MEDICINE [address] [place], [place] [phone] Natalie Baxter MD [address] [place] [address] Appointment Request Social History Tobacco Use Types Packs/Day Years Used Date Smoking Tobacco: Every Day Cigarettes Smokeless Tobacco: Never Comments:Half a pack a day. Alcohol Use Standard Drinks/Week Comments Yes 2 (1 standard drink = 0.6 oz pur e alcohol) Occasionally Sex and Gender Information Value Date Recorded Sex Assigned at Male 04/21/2022 10:37 AM EDT Legal Sex Male 10:37 AM EDT Gender Identity Male 04/21/2022 10:37 AM EDT Sexual Orientation Choose not to disclose 2021 10:37 AM EDT COVID-19 Exposure Response Date Recorded In the last 10 days, have yo u been in contact with someone who was confirmed or suspected to have Coronavirus/COVID-19? No / Unsure 07/09/2022 1:50 PM EST documented as of this encounter Miscellaneous Notes * Telephone Encounter - Gideon Snyder - 07/18/2022 9:10 AM EST Tc from pt requesting to speak with provider only. Pt states that he does not want to speak to a nurse just PCP. Pt was not very informal in what they wanted with dicussed to PCP about. Please contact pt at [phone] documented in this encounter Plan of Treatment Upcoming Encounters Date Type Department Care Team (Late st Contact Info) Description 05/23/2025 10:00 AM EST Clinical Support [address] [phone] Odilia Reynoso RN 06/27/2025 11:00 AM EST Office Visit [address] [address] Natalie Baxter MD [address] [place] [phone] documented as of this encounter Visit Diagnoses Not on filedocumented in this encounter Care Teams Rate Clerk Relationship Specialty Start Date End Date Natalie Baxter MD [address] [place] [phone] PCP - General Family Medicine 04/26/20 documented as of this encounter
--- OUTSIDE RECORDS SUMMARY | 2025-05-16 11:39 | XMS_ITS | Encounter Summary ---
Author Organization [employer] Address [address] [facility] [address] [place] [address] Care Team Providers Care Community Association Manager Name Role Phone Natalie Baxter MD Primary Care Provider Reason for Visit * Reason Onset Date Comments FYI 06/17/2024 Encounter Details Date Type Department Care Team ([facility] Contact Info) Description 06/17/2024 Telephone [facility] MEDICINE [address] [place], [place] [phone] Natalie Baxter MD [address] [place], [place] [phone] FYI Social History Tobacco Use Types Packs/Day Years Used Date Smoking Tobacco: Every Day Cigarettes Passive Smoke Exposure: Current Smokeless Tobacco: Never Comments:Half a pack a day. Alcohol Use Standard Drinks/Week Comments Yes 2 (1 standard drink = 0.6 oz pur e alcohol) Occasionally Depression Answer Date Recorded Patient Health Questionnaire-9 Score 0 06/17/2024 Patient Health Questionnaire-9 Score 0 06/17/2024 Last PHQ-9: Questionnaire Data Not on file 1 08/18/2023 Housing Stability Answer Date Recorded What is [...] Date Recorded Patient Health Questionnaire-2 Score 0 06/17/2024 Sex and Gender Information Value Date Recorded Sex Assigned at Male 04/21/2022 10:37 AM EDT Legal Sex Male 10:37 AM EDT Gender Identity Male 04/21/2022 10:37 AM EDT Sexual Orientation Choose not to disclose 2021 10:37 AM EDT documented as of this encounter Functional Status * Over the past 2 weeks, how often have you been bothered by any of the following problems? Question Answer Date of Assessment Author Patient Health Questionnaire -2 Score 0 06/17/2024 12:58 PM Leidy Schmid MA * Little interest or pleasure in doing things Answer Date of Assessment Author Not at all 06/17/2024 12:58 PM Leidy Schmid MA * Feeling down, depressed, or hopeless Answer Date of Assessment Author Not at all 06/17/2024 12:58 PM Leidy Schmid MA * Trouble falling or staying asleep, or sleeping too much Answer Date of Assessment Author Not at all 06/17/2024 12:58 PM Leidy Schmid MA * Feeling tired or having little energy Answer Date of Assessment Author Not at all 06/17/2024 12:58 PM Leidy Schmid MA * Poor appetite or overeating Answer Date of Assessment Author Not at all 06/17/2024 12:58 PM Leidy Schmid MA * Feeling bad about yourself - or that you are a failure or have let yourself or your family down Answer Date of Assessment Author Not at all 06/17/2024 12:58 PM Leidy Schmid MA * Trouble concentrating on things, such as reading the newspaper or watching television Answer Date of Assessment Author Not at all 06/17/2024 12:58 PM EST Leidy Zimmerman MA * Moving or speaking so slowly that other people could have noticed? Or the opposite - being so fidgety or restless that you have been moving around a lot more than usual. Answer Date of Assessment Author Not at all 06/17/2024 12:58 PM EST Leidy Zimmerman MA * Thoughts that you would be better off or hurting yourself in some way Answer Date of Assessment Author Not at all 06/17/2024 12:58 PM EST Leidy Zimmerman MA * Patient Health Questionnaire-9 Score Answer Date of Assessment Author 0 06/17/2024 12:58 PM EST Leidy Zimmerman MA documented as of this encounter Miscellaneous Notes * Telephone Encounter - Aniyah Morris - 06/17/2024 3:29 PM EST Tc from pt to report his latest visits at [facility] was attended by Jaycee Baeza and Ellie Thomson. documented in this encounter Plan of Treatment Upcoming Encounters Date Type Department Care Team (Late st Contact Info) Description 05/23/2025 10:00 AM EST Clinical Support [facility] MEDICINE [address] [place] [phone] Odilia Reynoso RN 06/27/2025 11:00 AM EST Office Visit [facility] MEDICINE [address] [place] [phone] Natalie Baxter MD [address] [place] [address] documented as of this encounter Visit Diagnoses Not on filedocumented in this encounter Additional Health Concerns Assessment Noted Time PHQ-9 Depression Total Score: 0 06/17/20 24 12:58 PM EST documented as of this encounter Care Teams Community Association Manager Relationship Specialty Start Date End Date Natalie Baxter MD [address] [place] [address] PCP - General Family Medicine 04/26/20 documented as of this encounter
--- OUTSIDE RECORDS SUMMARY | 2025-05-16 11:39 | XMS_ITS | Encounter Summary ---
Author Organization [employer] Address [address] [place] [address] Care Team Providers Care Carton Filling Machine Operator Name Role Phone Natalie Baxter MD Primary Care Provider Reason for Visit * Reason Onset Date Comments FYI 07/08/2023 Clarification of Tramadol refill 07/08/2023 Encounter Details Date Type Department Care Team ([facility] st Contact Info) Description 07/08/2023 Telephone [facility] MEDICINE [address] [place], [place] [phone] Natalie Baxter MD [address] [place] [address] FYI; Clarification of Tramadol refill Social History Tobacco Use Types Packs/Day Years Used Date Smoking Tobacco: Every Day Cigarettes Passive Smoke Exposure: Current Smokeless Tobacco: Never Comments:Half a pack a day. Alcohol Use Standard Drinks/Week Comments Yes 2 (1 standard drink = 0.6 oz pur e alcohol) Occasionally Housing Stability Answer Date Recorded What is your housing situation today? I have patrick odom 04/20/[address] you li ve. Do you have problems with any of the following? None of the above 04/20/2023 Food Insecurity Answer Date Recorded Within the past 12 months, y ou worried that your food would run out before you got money to buy more: Never True 04/20/2023 Within the past 12 months,th e food you bought just didn't last and you didn't have enough money to get more: Never True Transportation Answer Date Recorded In the past 12 months, has l ack of transportation kept you from medical appts, meetings, work or from getting things needed for daily living? Yes, it has kept me from medical appointments or getting medications. 03/30/2023 Utilities Answer Date Recorded In the past 12 months, has t he electric, gas, oil or water company threatened to shut off services in your home? No 04/20/2023 Depression Answer Date Recorded Patient Health Questionnaire-2 Score 0 08/29/2022 Sex and Gender Information Value Date Recorded Sex Assigned at Male 04/21/2022 10:37 AM EDT Legal Sex Male 10:37 AM EDT Gender Identity Male 04/21/2022 10:37 AM EDT Sexual Orientation Choose not to disclose 2021 10:37 AM EDT documented as of this encounter Miscellaneous Notes * Telephone Encounter - Odilia Reynoso RN - 07/08/2023 11:14 AM EST TC to pharmacy, spoke with Prasanth clarified that Tramadol RX from 04/20/23 was filled on 07/06/23. Pharmacy states RX was good for 6 months. Explained to pharmacist that PCP plan was to provide pt with #30 tabs to be an emergency supply only and should be given ONTOP of his usual #90 tablets every 30 days. Pharmacy stated his insurance wont allow refill of Tramadol until his 10 day supply gone. TC to pt, reviewed above. Pt aware that he will have to call [facility] 07/16/23 and ask them to fill his RX. Will send message to PCP on 07/13/23 requesting his next refill for 07/16/23. * Telephone Encounter - Joan Cassidy - 07/08/2023 10:17 AM EST Tc from pt calling in regards to traMADol (Ultram) 50 MG tablet. Pt received a refill of 30 tabletsand was questioning why he only received 30. It Trainee looked further into chart and noticed a new script was never sent. It Trainee contact pharmacy in regards to refill and pharmacy states they used a 04/20/23 script for a 30 tablet (10 day supply). documented in this encounter Plan of Treatment Upcoming Encounters Date Type Department Care Team (Late st Contact Info) Description 05/23/2025 10:00 AM EST Clinical Support [address] [address] Odilia Reynoso, RN 06/27/2025 11:00 AM EST Office Visit [address] [address] Natalie Baxter MD [address] [place] [phone] documented as of this encounter Visit Diagnoses Not on filedocumented in this encounter Care Teams Carton Filling Machine Operator Relationship Specialty Start Date End Date Natalie Baxter MD [address] [place] [phone] PCP - General Family Medicine 04/26/20 documented as of this encounter
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
--- OUTSIDE RECORDS SUMMARY | 2025-05-16 11:39 | XMS_ITS | Encounter Summary ---
Author Organization [employer] Address [address] [facility] [place] [address] Care Team Providers Care Cytology Manager Name Role Phone Natalie Baxter MD Primary Care Provider [phone] Encounter Details Date Type Department Care Team ([facility] st Contact Info) Description 09/03/2023 Orders Only [facility] [address] [place], [place] [phone] Natalie Baxter MD [address] [place] [address] Chronic pain of right knee (Primary Dx) Social History Tobacco Use Types Packs/Day Years Used Date Smoking Tobacco: Every Day Cigarettes Passive Smoke Exposure: Current Smokeless Tobacco: Never Comments:Half a pack a day. Alcohol Use Standard Drinks/Week Comments Yes 2 (1 standard drink = 0.6 oz pur e alcohol) Occasionally Housing Stability Answer Date Recorded What is your housing situation today? I have patrick lei 04/20/[address] you li [...] Description 05/23/2025 10:00 AM EST Clinical Support [address] [address] Odilia Reynoso RN 06/27/2025 11:00 AM EST Office Visit [address] [address] Natalie Baxter MD [address] [place] [phone] documented as of this encounter Visit Diagnoses Diagnosis Chronic pain of right knee- Primary documented in this encounter Care Teams Cytology Manager Relationship Specialty Start Date End Date Natalie Baxter MD [address] [place] [phone] PCP - General Family Medicine 04/26/20 documented as of this encounter
--- OUTSIDE RECORDS SUMMARY | 2025-05-16 11:39 | XMS_ITS | Encounter Summary ---
Author Organization [employer] Address [address] [facility] [place] [address] Care Team Providers Care Sink Cutter Name Role Phone Natalie Baxter MD Primary Care Provider [phone] Encounter Details Date Type Department Care Team ([facility] st Contact Info) Description 06/03/2023 Orders Only [facility] [address] [place] [address] Natalie Baxter MD [address] [place] [address] Neck abscess (Primary Dx) Social History Tobacco Use Types Packs/Day Years Used Date Smoking Tobacco: Every Day Cigarettes Passive Smoke Exposure: Current Smokeless Tobacco: Never Comments:Half a pack a day. Alcohol Use Standard Drinks/Week Comments Yes 2 (1 standard drink = 0.6 oz pur e alcohol) Occasionally Housing Stability Answer Date Recorded What is your housing situation today? I have patrick eli 04/20/[address] you li [...] Description 05/23/2025 10:00 AM EST Clinical Support [address] [address] Odilia Reynoso RN 06/27/2025 11:00 AM EST Office Visit [address] [address] Natalie Baxter MD [address] [place] [phone] documented as of this encounter Visit Diagnoses Diagnosis Neck abscess- Primary Cellulitis and abscess of neck documented in this encounter Care Teams Sink Cutter Relationship Specialty Start Date End Date Natalie Baxter MD [address] [place] [phone] PCP - General Family Medicine 04/26/20 documented as of this encounter
--- OUTSIDE RECORDS SUMMARY | 2025-05-16 11:39 | XMS_ITS | Encounter Summary ---
Author Organization [employer] Address [address] [facility] [address] [place] [address] Care Team Providers Care Doughnut Fryer Name Role Phone Natalie Baxter MD Primary Care Provider [phone] Reason for Visit * Reason Comments Med Refill Encounter Details Date Type Department Care Team ([facility] Contact Info) Description 01/09/[address] [facility] [address] [place], [place] [phone] Natalie Baxter MD [address] [place], [place] [phone] Social History Tobacco Use Types Packs/Day Years [...] Description 05/23/2025 10:00 AM EST Clinical Support [facility] [address] [place] [phone] Odilia Reynoso RN 06/27/2025 11:00 AM EST Office Visit [facility] [address] [place] [phone] Natalie Baxter MD [address] [place] [phone] documented as of this encounter Visit Diagnoses Not on filedocumented in this encounter Care Teams Doughnut Fryer Relationship Specialty Start Date End Date Natalie Baxter MD [address] [place] [phone] PCP - General Family Medicine 04/26/20 documented as of this encounter
--- OUTSIDE RECORDS SUMMARY | 2025-05-16 11:39 | XMS_ITS | Encounter Summary ---
Author Organization [employer] Address [address] [facility] [address] [place] [address] Care Team Providers Care Technical Solution Architect Name Role Phone Natalie Baxter MD Primary Care Provider [phone] Encounter Details Date Type Department Care Team (Late Contact Info) Description 10/30/2022 Orders Only [address] [phone] Natalie Baxter MD [address] [place] [address] [phone] Cellulitis of right lower extremity (Primary Dx) Social History Tobacco Use Types Packs/Day Years Used Date Smoking Tobacco: Every Day Cigarettes Smokeless Tobacco: Never Comments:Half a pack a day. Alcohol Use Standard Drinks/Week Comments Yes 2 (1 standard drink = 0.6 oz pur e alcohol) Occasionally Depression Answer Date Recorded Patient Health Questionnaire-2 [...] Encounters Date Type Department Care Team (Late Contact Info) Description 05/23/2025 10:00 AM EST Clinical Support [address] [phone] Odilia Reynoso RN 06/27/2025 11:00 AM EST Office Visit [address] [phone] Natalie Baxter MD [address] [place] [address] documented as of this encounter Visit Diagnoses Diagnosis Cellulitis of right lower extremity- Primary documented in this encounter Care Teams Technical Solution Architect Relationship Specialty Start Date End Date Natalie Baxter MD [address] [place] [address] PCP - General Family Medicine 04/26/20 documented as of this encounter
--- OUTSIDE RECORDS SUMMARY | 2025-05-16 11:39 | XMS_ITS | Encounter Summary ---
Author Organization [employer] Address [address] [facility] [address] [place] [address] Care Team Providers Care Mcat Instructor Name Role Phone Natalie Baxter MD Primary Care Provider [phone] Reason for Visit * Reason Comments Med Refill Encounter Details Date Type Department Care Team ([facility] Contact Info) Description 02/04/2025 Refill [facility] [address] [place], [place] [phone] Natalie Baxter MD [address] [place], [place] [phone] Post-traumatic osteoarthritis of right knee Social History Tobacco Use Types Packs/Day Years [...] housing situation today? I have patrick odom 11/08/[address] you li [...] Description 05/23/2025 10:00 AM EST Clinical Support [facility] [address] [place] [phone] Odilia Reynoso RN 06/27/2025 11:00 AM EST Office Visit [facility] [address] [place] [phone] Natalie Baxter MD [address] [place] [address] documented as of this encounter Visit Diagnoses Diagnosis Post-traumatic osteoarthritis of right knee documented in this encounter Additional Health Concerns Assessment Noted Time PHQ-9 Depression Total Score: 0 11/09/19 25 10:04 AM EDT documented as of this encounter Care Teams Mcat Instructor Relationship Specialty Start Date End Date Natalie Baxter MD [address] [place] [address] PCP - General Family Medicine 04/26/20 documented as of this encounter
--- OUTSIDE RECORDS SUMMARY | 2025-05-16 11:39 | XMS_ITS | Encounter Summary ---
Author Organization [employer] Address [address] [facility] [address] [place] [address] Care Team Providers Care Audiometrist Name Role Phone Natalie Baxter MD Primary Care Provider [phone] Encounter Details Date Type Department Care Team [facility] Description 08/15/2023 Orders Only [facility] [address] [place], [place] [phone] Rolf Penn MD [address] [place] [address] Chronic pain of multiple sites (Primary Dx) Social History Tobacco Use Types [...] Description 05/23/2025 10:00 AM EST Clinical Support [address] [phone] Odilia Reynoso RN 06/27/2025 11:00 AM EST Office Visit [address] [address] Natalie Baxter MD [address] [place] [phone] documented as of this encounter Visit Diagnoses Diagnosis Chronic pain of multiple sites- Primary documented in this encounter Care Teams Audiometrist Relationship Specialty Start Date End Date Natalie Baxter MD [address] [place] [phone] PCP - General Family Medicine 04/26/20 documented as of this encounter
--- OUTSIDE RECORDS SUMMARY | 2025-05-16 11:39 | XMS_ITS | Data Portability ---
Author Organization [facility], [facility] Address [address] [place] [address] Care Team Providers Care Latex Spooler Name Role Phone HANS ALLEN Primary Care Provider Assessment No assessment recorded. Plan of Treatment Reminders Order Date Submit Date Provider Last Modified By Organization Details Last Modified Time Details Appointments None recorde d. Lab None recorde d. Referral None recorde d. Procedures None recorde d. Surgeries None recorde d. Imaging XR, knee, 4 or more view - oa right knee rm 201 025 10/20/19 25 [email or web address] [facility], [address], [address], [place], [address], 5 14:10:45 XR, knee, 4 or more view - ROOM 203, left knee pain 024 03/25/20 24 [email or web address] [facility], [address], [address], [place], [address], 4 10:18:28 Medication Orders None recorde d. Patient TargetsNo targets recorded. Patient InstructionsNo instructions recorded. Reason for Referral None Reported. Results Created Date Observation Date Name Description Value Unit Range Abnormal Flag Note LastModifiedBy Organization Detail LastModifiedTime 02/19/20 24 11/28/2019 imagi ng/di agnos tic resul t No observ ation record ed. [email or web address] Not Available 01/22 17:36:12 02/19/20 24 11/17/2020 imagi ng/di agnos tic resul t No observ ation record ed. [email or web address] Not Available 01/22 17:36:17 02/19/20 24 11/18/2019 imagi ng/di agnos tic resul t No observ ation record ed. [email or web address] Not Available 01/22 17:36:18 02/19/20 24 11/14/2022 imagi ng/di agnos tic resul t No observ ation record ed. [email or web address] Not Available 01/22 17:36:51 03/25/20 24 03/25/2024 XR, knee, 4 or more view http:/ [email or web address] ?Encry pted=s hAaTro YD8dLq bEUv6g %2BXZw aYqtaq 0bqfl% 2Fg9IQ a4ajBk vP9nXo QUaueC m3YtLR FvZl JJ8[facility] 6a3755 AC0Kqa 3%2BAW aGhKiQ trMwF INTERFACE [facility] [address] [facility] [address], [place], [address], 03/25/2024 10:00:38 03/25/20 24 03/25/2024 XR, knee, 4 or more view [email or web address] ?Encry pted=s hAaTro YD8dLq bEUv6g %2BXZw aYqtaq 0bqfl% 2Fg9IQ a4ajBk vP9nXo QUaueC m3YtLR FvZl JJ8mAn tai3 8f0192 AC0Kqa 3%2BAW aGhKiQ trMwF INTERFACE [facility] [address] [facility] [address], [place], [address], 03/25/2024 10:00:40 10/20/19 25 10/19/2024 XR, knee, 4 or more view [email or web address] ?Encry pted=s hAaTro YD8dLq bEUv6g %2BXZw aYqtaq 0bqfl% 2Fg9IQ a4ajBk vP9nXo QUaueC m3YtLR FvZlgJ JJ8mAn HZtai3 0d7458 AC0Kla n6NWaS kKiQtr MwF INTERFACE [facility] [address] [facility] [address], [place], [address], 10/19/2024 13:40:05 10/20/19 25 10/19/2024 XR, knee, 4 or more view http:/ [email or web address] ?Encry pted=s Martín YD8dLq bEUv6g %2BXZw aYqtaq 0bqfl% 2Fg9IQ a4ajBk vP9nXo QUaueC m3YtLR FvZlgJ JJ8mAn HZtai3 5k4945 AC0Kla n6NWaS kKiQtr MwF INTERFACE [facility] [address], [address], 10/19/2024 13:40:06 Result Notes Documentation Provider Name and Address Organization Details Recorded Time Xr, Knee, 4 Or More View : [email or web address]? Encrypted=hoIiUimPA5yVbpW Uv6g%7VLObyIzqvx5bpkw%2Fg 7DLh3grBfeW7tTeOZmyrCy1Wr PQKwWyrPGW4rWnMQqfx44n789 5DU8Fes3%2BAWaGhKiQtrMwF Not Available [employer] 03/25/2024 10:0 0:39 Xr, Knee, 4 Or More View : [email or web address] Encrypted=zdPeYpmSI7bLvkY Uv6g%2SSOnaVypyy8bcxp%2Fg 5CDc4wpRzyL8eFnYQscwMc8Bg UHHfRtgWBK8fCzPAvxr18h248 4NI1Ctu5%2BAWaGhKiQtrMwF Not Available [facility] 03/25/2024 10:0 0:41 Xr, Knee, 4 Or More View : [email or web address] Encrypted=cyMiIuoSR3eLgmY Uv6g%5ESAkjToems2somj%2Fg 6GXh7euVefE5iDpEKlcsZx9Xg LCHdAgxNPB9hEvVBnex85q287 8ZX7Wjgu8GGgHgSgKnkTpI Not Available [facility] 10/19/2024 13:40: 05 Xr, Knee, 4 Or More View : [email or web address] Encrypted=cqSnQveSR8mMusZ Uv6g%0NEMhgEwhmy9saew%2Fg 8ZHt8fnHhxV2uXuDObjhDo0Wi WSUdFytJED4xAyFDkol91d277 5FR6Wrqv3XIiToBxBhsTvX Not Available [facility] 10/19/2024 13:40: 07 Problems Name Problem SNOMED Code Status Onset Date Resolution Date Notes Provider Name and Address Organization Details Recorded Time Pain of right knee joint 6267980532658 00 Active 2022 Status : 'A'; Not Available [facility] 11:58:01 Osteoarthr itis of right knee joint 9285419132834 00 Active 2024 Ana Watson [facility] 13:30:20 Problem Notes None recorded. Procedures Surgical History Date Name Laterality Status Provider Name and Address Organization Details Recorded Time 10/19/2024 Sports Knee 4&1 completed Fortino Fu PA-C [address], [place], [address], [facility] 10/19/2024 15:10:46 03/25/2024 Sports Knee 4&1 completed Fortino Fu PA-C [address], [place], [address], [facility] 03/25/2024 10:13:03 Imaging Results None recorded. Procedure Notes None recorded. Medical Equipment None Reported. Allergies No known drug allergies Medications Name Sig Start Date Stop Date Status Note LastModified by Organization Details LastModified Time primidone 50 mg tablet TAKE ONE TABLET BY MOUTH EVERY DAY active Not Available Not Available No t Available atorvastati n 80 mg tablet TAKE ONE TABLET BY MOUTH EVERY DAY active Not Available Not Available No t Available hydrocodone 5 mg-acetamin ophen 325 mg tablet TAKE ONE TABLET BY MOUTH EVERY 8 HOURS NEEDED FOR SEVERE PAIN active Not Available Not Available No t Available meloxicam 15 mg tablet TAKE ONE TABLET BY MOUTH EVERY DAY active Not Available Not Available No t Available lisinopril 20 mg tablet TAKE ONE TABLET BY MOUTH EVERY DAY active Not Available Not Available No t Available clobetasol 0.05 % topical cream APPLY A THIN LAYER TOPICALLY TO THE AFFECTED AREAS TWICE A DAY DIRECTED. DO NOT USE BEYOND 10-14 DAYS active Not Available Not Available No t Available sulfamethox azole 800 mg-trimetho prim 160 mg tablet TAKE ONE TABLET BY MOUTH TWICE A DAY FOR 7 DAYS 09/24 completed Not Available Not Available Not Available hydrocodone 10 mg-acetamin ophen 325 mg tablet TAKE ONE TABLET BY MOUTH EVERY 12 HOURS NEEDED FOR SEVERE PAIN. MAY TAKE 1 EXTRA DOSE DAILY NEEDED FOR PAIN, NO MORE THAN 10 TIMES A M active Not Available Not Available No t Available aspirin 81 mg tablet,cathleen yed release TAKE ONE TABLET BY MOUTH EVERY DAY active Not Available Not Available No t Available tramadol 50 mg tablet TAKE 2 TABLETS BY MOUTH EVERY 6 HOURS NEEDED FOR SEVERE PAIN active Not Available Not Available No t Available sildenafil 100 mg tablet TAKE ONE TABLET BY MOUTH EVERY DAY NEEDED APPROXIMA TELY ONE HOUR BEFORE SEXUAL ACTIVITY active Not Available Not Available No t Available triamcinolo ne acetonide 0.1 % topical cream MIX WITH CERAVE AND APPLY TWO TIMES A DAY active Not Available Not Available No t Available baclofen 20 mg tablet TAKE ONE TABLET BY MOUTH TWICE A DAY active Not Available Not Available No t Available oxycodone-a cetaminophe n 5 mg-325 mg tablet TAKE ONE TABLET BY MOUTH EVERY 12 HOURS IF NEEDED FOR SEVERE PAIN 09/24 completed Not Available Not Available Not Available lisinopril 10 mg tablet TAKE ONE TABLET BY MOUTH EVERY DAY active Not Available Not Available No t Available metoprolol succinate ER 25 mg tablet,exte nded release 24 hr TAKE ONE TABLET BY MOUTH EVERY DAY active Not Available Not Available No t Available betamethaso ne dipropionat e 0.05 % topical ointment APPLY A THIN LAYER TO AFFECTED AREA S) TWO TIMES A DAY active Not Available Not Available No t Available pregabalin 50 mg capsule TAKE ONE CAPSULE BY MOUTH DAILY AT BEDTIME active Not Available Not Available No t Available diclofenac 1 % topical gel APPLY 2 GRAMS TOPICALLY TO THE AFFECTED AREA S) FOUR TIMES A DAY 09/24 completed Not Available Not Available Not Available Brilinta 90 mg tablet TAKE ONE TABLET BY MOUTH TWICE A DAY active Not Available Not Available No t Available lidocaine 5 % topical ointment APPLY TO AFFECTED AREA S) THREE TIMES A DAY NEEDED active Not Available Not Available No t Available Vitals Date Recorded Body height Body mass index (BMI) Body weight Provider Name and Address Organization Details Last Updated DateTime 09/25/2023 177.8 cm 31.1 kg/m2 81930.54 g MARNIE SHANTE [facility] 09/25/2023 14:01:10 Date Recorded Body weight Body mass index (BMI) Body height Provider Name and Address Organization Details Last Updated DateTime 10/19/2024 64299.54 g 31.1 kg/m2 177.8 cm Ana Watson [facility] 10/19/2024 13:27:45 Social History None recorded. Functional Status None recorded. Mental Status None recorded. Family History Nothing Reported. Medical History No medical history recorded. Past Encounters Encounter ID Performer Location Encounter Start Date Encounter Closed Date Diagnosis/Indication Diagnosis SNOMED-CT Code Diagnosis ICD10 Code Diagnosis IMO Codes Diagnosis Note [id number] [facility] [address] [place] [address] 09/25/2023 13:55:07 09/25/2023 14:32:29 Full thickness rotator cuff tear 820542111 M75.122 PLAN: reviewed patient's imaging and exam findings in detail with him. Reviewed that his MRI from back in December of 2022 demonstrat ed a pretty substantia l rotator cuff tear. He elected to put off surgery at the time due to his desire to have knee replacemen t first. He presents today to discuss his options moving forward.Mumtaz mccall is reporting that his pain remains the same as it did when he last saw me. Localizes pain to the scapular border. He would like to know how long the postoperat gretta recovery course is after surgery. We reviewed that his MRI is now almost a-year-old and had a quite substantia l sized tear with retraction at that time and is likely progressed and has increased atrophy. Therefore he may require reverse total shoulder arthroplas ty. Reviewed that recovery from reverse total shoulder arthroplas ty versus rotator cuff repair are both at least 4 to 6 months. He is unable to take off that amount of time from work right now. Therefore he elects to continue with nonoperati ve management . Discussed utility of injections but he states that he has other issues which he is battling his shoulder and his knee and his left shoulder is not particular ly bothersome . Also reviewed that an injection to the left shoulder would likely not alleviate his scapular border pain as this is due to compensato ry shoulder range of motion as a result of his underlying cuff tear. If he is interested in moving forward with surgery would recommend obtaining repeat MRI and referring him to Dr. Almaguer to discuss his options. He may also follow-up at any time if he would like to try an injection in the future. All questions and concerns were addressed and answered today. [id number] [facility] [address] [place] [address] 03/25/2024 09:01:15 03/25/2024 10:18:27 Pain of left knee joint 5367644339 70873 M25.562 Osteoarthr itis of left knee joint 2274097371 56054 M17.12 [id number] [facility] [address] [place] [address] 10/19/2024 13:19:01 10/31/2024 14:19:48 Osteoarthritis of right knee joint 3123650638 25423 M17.11 [id number] Osteoarthr itis of left knee joint 4863073746 00540 M17.12 [id number] Health Concerns Section Related Observation LastModified by Organization Detai ls LastModified Time None Recorded Concern Status LastModified by Organization Details LastModified Time None Recorded Advance Directives Directive None Recorded Payers Insurance Date Sequence Insurance Name Policy Number Policy Waterman Covered Member ID Waterman Member ID Guarantor Name 10/19/2024 2 [place] [facility] Roger Muller [id number] Roger Muller 10/19/2024 1 [place]MEDICARE [place]AC[place] PPO) [id number] Roger Muller [id number] Roger Muller 07/20/2024 1 [facility] - DOS ON OR AFTER 2022 - [place]ICARE [place]AGE [place] (MEDICARE REPLACEMENT/AD VANTAGE - PPO) Roger Muller [id number] Roger Muller 03/23/2024 1 [facility] - DOS ON OR AFTER 2022 - ONE CARE (MEDICARE REPLACEMENT/AD VANTAGE - HMO) Roger Muller [id number] Roger Muller 02/07/2025 1 [place] P[place]) [id number] Roger Muller [id number] Roger Muller 02/07/2025 2 [place] [facility] Roger Muller [id number] Roger Muller Notes Date Note Type Note Provider Name and Address Organization Details Recorded Time 09/25/2023 text/html ROS as noted in the HPI I am seeing the patient under the general supervision of Dr. Tran who was available but who did not see the patient. HPI: this is a 62-year-old gentleman who presents today for follow-up of his left shoulder. He has known history of full thickness cuff tear of the supraspinatus with retraction to the mid humeral head. This was noted on an MRI back in December of last year. He presents today due to continued shoulder pain worsening causing the patient to consider moving forward with surgery. When i last saw him his focus was on getting his knee replaced and elected to put off shoulder surgery. Reports no substantial worsening in his symptoms but does note that he has some time where work will be slowing down for a month or so and was considering surgery. Localizes majority of his pain currently to the scapular border. No new fall or injury. Diagnostic imaging:Left shoulder MRI was obtained at outside facility and was independently reviewed during today's interview and examination. MRI demonstrates full-thickness supraspinatus rotator cuff tear with retraction to the mid humeral head. Moderate to advanced AC joint arthritis infraspinatus tendinosis. Mild distal subscap tendinosis. Degenerative tearing of the labrum. Xuan Marinelli PA-C [address], [place], [address], [place] [facility] [place] [facility] 09/25/2023 14:31:35 03/25/2024 text/html I am seeing the patient today under the supervision of Dr. Wells who was available but who did not see the patient.HPI:Patient' s a 64-year-old male comes the office with a new complaint of discomfort about his left knee. We have treated him in the past for severe arthritis of the right knee. However, he has significant dermatologic issues with several infections in the back of the right knee. Therefore, we have treated him conservatively for the right knee. He has had increased pain the last several months in regards to the left knee. His pain is over the anterior and medial aspect of the knee. Describes some mild giving out episodes. He denies injury. He does use a cane.Past family, medical, social history and review of systems has been reviewed, updated and is located in the patient s chart.Examination:T he patient is well appearing and in no apparent distress. Alert and oriented x3. Gait is symmetric. Mild swelling of both knees. Mild tenderness of the medial joint lines of both knees. Range of motion of both knees is -5 full extension flexion near 120 little more pain on the right side. The treatment instability of the left knee. Peripheral, vascular, lymphatic examination, skin, neurological, coordination, reflexes, sensation are within normal limits.X-rays ordered, obtained and reviewed at [facility] 4 views of the left knee reviewed demonstrate mild to moderate medial compartment and mild patellofemoral arthritis of the left knee. There is severe medial compartment arthritis of the right knee.Impression:Mild to moderate arthritis of the left knee. Severe arthritis of the right knee with history of dermatologic issues of the right lower extremity.Plan:I reviewed the x-rays and diagnosed with the patient. We discussed conservative management for his left knee. He agrees with conservative treatment. Activity modification discussed. P.r.n. NSAIDs can be used. We discussed the risks associated with NSAID use. We discussed injection therapy both cortisone and viscosupplementation . I injected the left knee with cortisone. He understands he can have these injections every 3-6 months with a benefit him and the pain returns. Fortino Fu PA-C [address], [place], [address], [facility] 03/25/2024 10:13:32 10/19/2024 text/html I am seeing the patient today under the supervision of Dr. Wells who was available but who did not see the patient.HPI:Patient returns for follow-up of right greater left knee pain. His history is outlined by previous notes. However, I have not seen him in a couple years now. He has a history of some dermatologic issues with the right lower extremity. He has been seen by dermatology. Been followed by his primary care physician. He seems to have things under control in regards to his dermatologic issues of the right leg/knee. He continues to complain of pain. He is on tramadol for pain relief. He has mild discomfort and swelling in the left knee. However, the right knee is more uncomfortable over the medial side. He denies recent injury. However, in April of last year he had a myocardial infarction and had bypass surgery. He tells me that he has not followed up with his straight line press setter postoperatively. He did not do cardiac rehabilitation. Secondarily, he has a history of a carotid endarterectomy. He has some recurrence of stenosis of his carotids. He just was seen by the vascular surgeon for follow-up in regards to his carotid stenosis.Past family, medical, social history and review of systems has been reviewed, updated and is located in the patient s chart.Examination:T he patient is well appearing and in no apparent distress. Alert and oriented x3. Gait is symmetric. Mild swelling of the knees. More tenderness over the medial joint line of the right greater than left knee. Range of motion is -5 of full extension and flexion to 115 with more pain on the right side. He does have some open skin areas of the right lower extremity. Otherwise the leg looks healed with some evidence of old dermatologic issues. Peripheral, vascular, lymphatic examination, skin, neurological, coordination, reflexes, sensation are within normal limits.X-rays ordered, obtained and reviewed at [facility] 4 views of the right knee reviewed demonstrate severe medial compartment arthritis of the right knee. There is moderate to severe medial and lateral compartment arthritis of the left knee.Impression:Jesenia re medial compartment arthritis of the right knee. Moderate arthritis of the left knee. History of myocardial infarction last April with minimal follow-up. History of carotid stenosis with previous endarterectomy.Plan: I reviewed the x-rays and diagnosis with the patient. He is interested in going forward with total knee replacement surgery of the right knee. His dermatologic issues seem to have subsided. However, he has other significant medical comorbidities such as a recent myocardial infarction and continued issues with carotid stenosis. He is due to follow up with her primary care physician next month. I do want to follow up with his straight line press setter. He has not seen his straight line press setter since his myocardial infarction and bypass surgery. He will continue with his current pain regimen. He requests an injection in the left knee today. I did make him a follow-up appointment to see me in January. We will check on his medical issues and potentially get him on appointment to see Dr. Wells did discuss potential surgery for the arthritic right knee. Fortino Fu PA-C [address], [place], [address], [facility] 10/19/2024 15:11:14
--- OUTSIDE RECORDS SUMMARY | 2025-05-16 11:39 | XMS_ITS | Encounter Summary ---
Author Organization [employer] Address [address] [place] [address] Care Team Providers Care Can Intake Worker Name Role Phone Natalie Baxter MD Primary Care Provider [phone] Reason for Visit * Reason Onset Date Comments Nurse Triage 12/12/2024 Encounter Details Date Type Department Care Team ([facility] Contact Info) Description 12/12/2024 Telephone [facility] [address] [place], [place] [phone] Natalie Baxter MD [address] [place] [address] Nurse Triage Social History Tobacco Use Types Packs/Day Years [...] encounter Miscellaneous Notes * Telephone Encounter - Alejandro Odell RN - 12/12/2024 11:27 AM EDT TC placed to patient [phone] regarding below message. RN status checked patient. Patient informed RN that he is having severe left knee pain, collapsing and buckling. Denies any recent injury tothe site. Patient reported he a only wants to see his PCP. RN informed patient that his PCP does not have any appts and he can be placed on the recall list. Patient reported he will go to the ED for further evaluation. PT verbalized understanding. PT to F/U PRN. * Telephone Encounter - Marilynn Ellington RN - 12/12/2024 8:56 AM EDT Called pt. Asked to be called back as he is in checkout at the store. Pt. States that his left kneeis having collapsing and buckling and severe pain. No swelling no redness. Pt. Only wants to see his PCP Sahil. Will send to PCP nurses to find slot for pt. For an appt. Pt. Also wants to discuss referral to solar energy specialist. Protocol Used: Knee Pain (Adult) Protocol-Based Disposition: See in Office or Video Visit within 3 Days Video visit offer not recorded Positive Triage Questions: * Moderate pain (e.g., symptoms interfere with work or school, limping) and present > 3 days * Fluid-filled sack just below kneecap (no fever or redness) * Knee pain is a chronic symptom (recurrent or ongoing AND lasting > 4 weeks) * Knee giving way (or buckling) when walking is a chronic symptom (recurrent or ongoing AND lasting> 4 weeks) * All higher-acuity triage questions were negative Care Advice Discussed: * Reassurance and Education - Knee Pain * Pain Medicines * Pain Medicines - Extra Notes and Warnings * Using Heat for Pain * Telephone Encounter - Robbie Polo - 12/12/2024 8:21 AM EDT Symptom: Knee Pain - Not From Injury Outcome: Talk to a nurse or provider within 15 minutes Reason: Can't walk (unless normally can't walk) The caller accepted this outcome. Contact pt at [phone] documented in this encounter Plan of Treatment Upcoming Encounters Date Type Department Care Team (Late st Contact Info) Description 05/23/2025 10:00 AM EST Clinical Support [facility] MEDICINE [address] [place] [address] Odilia Reynoso RN 06/27/2025 11:00 AM EST Office Visit [address] [address] Natalie Baxter MD [address] [place] [address] documented as of this encounter Visit Diagnoses Diagnosis Post-traumatic osteoarthritis of right knee documented in this encounter Additional Health Concerns Assessment Noted Time PHQ-9 Depression Total Score: 0 11/09/19 25 10:04 AM EDT documented as of this encounter Care Teams Can Intake Worker Relationship Specialty Start Date End Date Natalie Baxter MD [address] [place] [address] PCP - General Family Medicine 04/26/20 documented as of this encounter
--- OUTSIDE RECORDS SUMMARY | 2025-05-16 11:39 | XMS_ITS | Encounter Summary ---
Author Organization [employer] Address [address] 7t [place] [address] Care Team Providers Care Winch Derrick Operator Name Role Phone Natalie Baxter MD Primary Care Provider [phone] Reason for Visit * Reason Onset Date Comments Medication Question 07/14/2024 Med Refill 07/14/2024 Encounter Details Date Type Department Care Team ([facility] st Contact Info) Description 07/14/2024 Telephone [facility] MEDICINE [address] [place], [place] [phone] Natalie Baxter MD [address] [place] [address] Medication Question; Med Refill Social History Tobacco Use Types Packs/Day Years [...] encounter Miscellaneous Notes * Telephone Encounter - Georgeanastasia WaggonerDaniel - 07/14/2024 3:29 PM EST Tc from pt stating that PCP dated for Him to slate picker med HYDROcodone-acetaminophen ([place]) 10-325 MG tablet On the 26 of this month but Pt states he usually picks it up the 23. Pt states that runs out of the medication tomorrow. Pt needs the Medication as sson as possible. Contact pt at [phone] documented in this encounter Plan of Treatment Upcoming Encounters Date Type Department Care Team (Late st Contact Info) Description 05/23/2025 10:00 AM EST Clinical Support [facility] [address] [place] [phone] Odilia Reynoso RN 06/27/2025 11:00 AM EST Office Visit [facility] [address] [place] [address] Natalie Baxter MD [address] [place] [phone] documented as of this encounter Visit Diagnoses Not on filedocumented in this encounter Additional Health Concerns Assessment Noted Time PHQ-9 Depression Total Score: 0 06/17/20 12:58 PM EST documented as of this encounter Care Teams Winch Derrick Operator Relationship Specialty Start Date End Date Natalie aBxter MD [address] [place] [address] PCP - General Family Medicine 04/26/20 documented as of this encounter
--- OUTSIDE RECORDS SUMMARY | 2025-05-16 11:39 | XMS_ITS | Clinical Summary ---
Author Organization [facility] Address [address] [place] [address] Care Team Providers Care Road Marker Name Role Phone Natalie Baxter MD Primary Care Provider [phone] Social History Tobacco Use Types Packs/Day Years Used Date Smoking Tobacco: Never Assessed Sex and Gender Information Value Date Recorded Sex Assigned at Not on file Legal Sex Male 11:48 PM EST Gender Identity Not on file Sexual Orientation Not on file Plan of Treatment Health Maintenance Due Date Last Done Comments Colorectal Cancer Screening: Colonoscopy 1958 DTaP,Tdap,and Td Vaccines (1 - Tdap) 1977 Pneumococcal Vaccine: 50+ Ye ars (1 of 1 - PCV) 2008 Zoster Vaccines (1 of 2) 2008 Depression Screening 06/22/2024 Abdominal Aortic Aneurysm (A AA) Screen 11/21/2024 Cholesterol Screening (Lipid Panel) 11/21/2024 Falls Risk Assessment 11/21/2024 Hepatitis C Screening 11/21/2024 Social Influencers of Health Screening 11/21/2024 COVID-19 Vaccine ( - 2024-2 6 season) 2025 Influenza Vaccine (#1) 2025 RSV [...] age to complete this topic Care Teams Road Marker Relationship Specialty Start Date End Date Natalie Baxter MD [address] [place] [phone] PCP - General Dice Maker 11/23/24
--- OUTSIDE RECORDS SUMMARY | 2025-05-16 11:39 | XMS_ITS | Encounter Summary ---
Author Organization [employer] Address [address] 7t [place] [address] Care Team Providers Care Awning Erector Name Role Phone Natalie Baxter MD Primary Care Provider [phone] Reason for Visit * Reason Onset Date Comments PA 10/03/2022 Encounter Details Date Type Department Care Team ([facility] Contact Info) Description 10/03/2022 Telephone [facility] MEDICINE 230 [place], [place] [phone] Natalie Baxter MD 230 [place], [place] [phone] PA Social History Tobacco Use Types Packs/Day Years [...] suspected to have Coronavirus/COVID-19? No / Unsure 09/09/2022 8:35 AM EDT documented as of this encounter Miscellaneous Notes * Telephone Encounter - Gideon Snyder - 10/03/2022 10:03 AM EDT Tc from pt requesting a PA for lidocaine (Xylocaine) 5 % ointment. Please sent to [id number] - [facility] [address] [place] [address] documented in this encounter Plan of Treatment Upcoming Encounters Date Type Department Care Team (Late st Contact Info) Description 05/23/2025 10:00 AM EST Clinical Support [address] [address] Odilia Reynoso RN 06/27/2025 11:00 AM EST Office Visit [address] [phone] Natalie Baxter MD [address] [place] [phone] documented as of this encounter Visit Diagnoses Not on filedocumented in this encounter Care Teams Awning Erector Relationship Specialty Start Date End Date Natalie Baxter MD [address] [place] [address] [phone] PCP - General Family Medicine 04/26/20 documented as of this encounter
--- OUTSIDE RECORDS SUMMARY | 2025-05-16 11:39 | XMS_ITS | Encounter Summary ---
Author Organization [employer] Address [address] 7[address] [place] [address] Care Team Providers Care Airplane Rental Clerk Name Role Phone Natalie Baxter MD Primary Care Provider [phone] Reason for Visit * Reason Onset Date Comments Medication Question 02/06/2025 Encounter Details Date Type Department Care Team ([facility] Contact Info) Description 02/06/2025 Telephone [facility] MEDICINE [address] [place], [place] [phone] Natalie Baxter MD [address] [place] [address] Medication Question Social History Tobacco Use Types Packs/Day Years [...] encounter Miscellaneous Notes * Telephone Encounter - Cinthya John RN - 02/06/2025 12:24 PM EDT TC placed to the pt pharmacy to confirm if the prescribed metoprolol succinate XL (Toprol-XL) 25 MG24 hr tablet is on recall. The pharmacist at [facility] stated that the pt LOT number for his current prescription of the metoprolol is not on the current recall list. Pt was advised of this but stated that he has called his pharmacy twice and they did confirm it it on recall. RN advised that our office just confirmed with his pharmacy that it is not but that the message will be forwarded to PCP for FYI * Telephone Encounter - Robbie Polo - 02/06/2025 10:16 AM EDT Tc from pt stating FDA has a recall for metoprolol succinate XL (Toprol-XL) 25 MG 24 hr tablet , and is requesting a alternative medication . Contact pt at [phone] documented in this encounter Plan of Treatment Upcoming Encounters Date Type Department Care Team (Late st Contact Info) Description 05/23/2025 10:00 AM EST Clinical Support [address] [address] Odilia Reynoso RN 06/27/2025 11:00 AM EST Office Visit [address] [address] Natalie Baxter MD [address] [place] [phone] documented as of this encounter Visit Diagnoses Not on filedocumented in this encounter Additional Health Concerns Assessment Noted Time PHQ-9 Depression Total Score: 0 11/09/19 25 10:04 AM EDT documented as of this encounter Care Teams Airplane Rental Clerk Relationship Specialty Start Date End Date Natalie Baxter MD [address] [place] [phone] PCP - General Family Medicine 04/26/20 documented as of this encounter
--- OUTSIDE RECORDS SUMMARY | 2025-05-16 11:39 | XMS_ITS | Encounter Summary ---
Author Organization [employer] Address [address] 7[address] [place] [address] Care Team Providers Care Pharmaceutical Compounding Supervisor Name Role Phone Natalie Baxter MD Primary Care Provider [phone] Reason for Visit * Reason Comments Med Refill Encounter Details Date Type Department Care Team ([facility] Contact Info) Description 11/06/[address] [facility] MEDICINE [address] [place], [place] [phone] Natalie Baxter MD 230 [place], [place] [phone] Post-traumatic osteoarthritis of right knee Social History [...] Answer Date of Assessment Author Patient Health Questionnaire-2 Score 0 11/08/2024 10:04 AM EDT Tessa Otero [place] * Little interest or pleasure in doing things Answer Date of Assessment Author Not at all 11/08/2024 10:04 AM EDT Tessa Streeter MA * Feeling down, depressed, or hopeless Answer Date of Assessment Author Not at all 11/08/2024 10:04 AM EDTessa Miller MA * Trouble falling or staying asleep, or sleeping too much Answer Date of Assessment Author Not at all 11/08/2024 10:04 AM EDTessa Mliler MA * Feeling tired or having little energy Answer Date of Assessment Author Not at all 11/08/2024 10:04 AM EDT Tessa Streeter MA * Poor appetite or overeating Answer Date of Assessment Author Not at all 11/08/2024 10:04 AM Tessa Sarah MA * Feeling bad about yourself - or that you are a failure or have let yourself or your family down Answer Date of Assessment Author Not at all 11/08/2024 10:04 AM Tessa Sarah MA * Trouble concentrating on things, such as reading the newspaper or watching television Answer Date of Assessment Author Not at all 11/08/2024 10:04 AM Tessa Sarah MA * Moving or speaking so slowly that other people could have noticed? Or the opposite - being so fidgety or restless that you have been moving around a lot more than usual. Answer Date of Assessment Author Not at all 11/08/2024 10:04 AM Tessa Sarah MA * Thoughts that you would be better off or hurting yourself in some way Answer Date of Assessment Author Not at all 11/08/2024 10:04 AM Tessa Sarah MA * Patient Health Questionnaire-9 Score Answer Date of Assessment Author 0 11/08/2024 10:04 AM Tessa Sarah MA documented as of this encounter Plan of Treatment Upcoming Encounters Date Type Department Care Team (Late st Contact Info) Description 05/23/2025 10:00 AM EST Clinical Support [address] [phone] Odilia Reynoso RN 06/27/2025 11:00 AM EST Office Visit [facility] MEDICINE [address] [place] [address] Natalie Baxter MD [address] [place] [address] documented as of this encounter Visit Diagnoses Diagnosis Post-traumatic osteoarthritis of right knee documented in this encounter Additional Health Concerns Assessment Noted Time PHQ-9 Depression Total Score: 0 06/17/20 24 12:58 PM EST documented as of this encounter Care Teams Pharmaceutical Compounding Supervisor Relationship Specialty Start Date End Date Natalie Baxter MD [address] [place] [phone] PCP - General Family Medicine 04/26/20 documented as of this encounter
--- OUTSIDE RECORDS SUMMARY | 2025-05-16 11:39 | XMS_ITS | Encounter Summary ---
Author Organization [employer] Address [address] 7[address] [place] [address] Care Team Providers Care Gate Operator Name Role Phone Natalie Baxter MD Primary Care Provider Reason for Visit * Reason Comments Med Refill Encounter Details Date Type Department Care Team ([facility] Contact Info) Description 12/06/2024 Refill [facility] MEDICINE [address] [place], [place] [phone] Natalie Baxter MD [address] [place], [place] [phone] Social History Tobacco Use Types Packs/Day Years [...] Description 05/23/2025 10:00 AM EST Clinical Support [facility] MEDICINE [address] [place] [phone] Odilia Reynoso RN 06/27/2025 11:00 AM EST Office Visit [facility] MEDICINE [address] [place] [phone] Natalie Baxter MD [address] [place] [address] documented as of this encounter Visit Diagnoses Not on filedocumented in this encounter Additional Health Concerns Assessment Noted Time PHQ-9 Depression Total Score: 0 11/09/19 25 10:04 AM EDT documented as of this encounter Care Teams Gate Operator Relationship Specialty Start Date End Date Natalie Baxter MD [address] [place] [address] PCP - General Family Medicine 04/26/20 documented as of this encounter
--- OUTSIDE RECORDS SUMMARY | 2025-05-16 11:39 | XMS_ITS | Encounter Summary ---
Author Organization [employer] Address [address] [place] [address] Care Team Providers Care Pocket Setter Lockstitch Name Role Phone Natalie Baxter MD Primary Care Provider [phone] Reason for Visit * Reason Comments Med Refill Encounter Details Date Type Department Care Team ([facility] Contact Info) Description 01/15/2024 Refill [facility] MEDICINE 230 [place], [place] [phone] Natalie Baxter MD [address] [place], [place] [phone] Social History Tobacco Use Types Packs/Day Years [...] Description 05/23/2025 10:00 AM EST Clinical Support [facility] MEDICINE [address] [place] [phone] Odilia Reynoso RN 06/27/2025 11:00 AM EST Office Visit [facility] MEDICINE [address] [place] [phone] Natalie Baxter MD [address] [place] [phone] documented as of this encounter Visit Diagnoses Not on filedocumented in this encounter Care Teams Pocket Setter Lockstitch Relationship Specialty Start Date End Date Natalie Baxter MD [address] [place] [address] [phone] PCP - General Family Medicine 04/26/20 documented as of this encounter
--- OUTSIDE RECORDS SUMMARY | 2025-05-16 11:39 | XMS_ITS | Encounter Summary ---
Author Organization [employer] Address [address] 7t [place] [address] Care Team Providers Care Cop Examiner Name Role Phone Natalie Baxter MD Primary Care Provider [phone] Encounter Details Date Type Department Care Team (Late Contact Info) Description 10/03/2022 Orders Only [facility] MEDICINE [address] [place] [phone] Natalie Baxter MD [address] [place] [phone] Acute meniscal tear of right knee, sequela Social History Tobacco Use Types Packs/Day Years [...] Description 05/23/2025 10:00 AM EST Clinical Support [facility] MEDICINE [address] [place] [phone] Odilia Reynoso RN 06/27/2025 11:00 AM EST Office Visit [facility] MEDICINE [address] [place] [address] Natalie Baxter MD [address] [place] [address] documented as of this encounter Visit Diagnoses Diagnosis Acute meniscal tear of right knee, sequela documented in this encounter Care Teams Cop Examiner Relationship Specialty Start Date End Date Natalie Baxter MD [address] [place] [address] PCP - General Family Medicine 04/26/20 documented as of this encounter
--- OUTSIDE RECORDS SUMMARY | 2025-05-16 11:40 | XMS_ITS | Encounter Summary ---
Author Organization [employer] Address [address] [facility] [place] [address] Care Team Providers Care Clam Shucker Name Role Phone Natalie Baxter MD Primary Care Provider [phone] Reason for Visit * Reason Onset Date Comments Med Refill 11/24/2022 Encounter Details Date Type Department Care Team ([facility] st Contact Info) Description 11/24/2022 Telephone [facility] MEDICINE 230 [place], [place] [phone] Natalie Baxter MD 230 [place] [address] Med Refill Social History Tobacco Use Types [...] suspected to have Coronavirus/COVID-19? No / Unsure 11/03/2022 10:51 AM EDT documented as of this encounter Miscellaneous Notes * Telephone Encounter - Ana Arce LPN - 11/24/2022 8:40 AM EDT Medication was sent to [id number] on 08/29/22 90 day supply with 3 refills. * Telephone Encounter - Melany Rl - 11/24/2022 8:20 AM EDT Tc from patient requesting a med refill on medication lisinopril [address] Baxter documented in this encounter Plan of Treatment Upcoming Encounters Date Type Department Care Team (Late st Contact Info) Description 05/23/2025 10:00 AM EST Clinical Support [address] [address] Odilia Reynoso RN 06/27/2025 11:00 AM EST Office Visit [address] [address] Natalie Baxter MD [address] [place] [phone] documented as of this encounter Visit Diagnoses Not on filedocumented in this encounter Care Teams Clam Shucker Relationship Specialty Start Date End Date Natalie Baxter MD [address] [place] [phone] PCP - General Family Medicine 04/26/20 documented as of this encounter
== END 2025-05-16 10:25 | disposition home or self-care (01) ==
LOC: HO.HOS 09:51
PROVIDERS: Visit Provider Physician Assistant
DX: M17.12 Unilateral primary osteoarthritis, left knee (principal)
CPT/HCPCS: 20610; 99213

== ENCOUNTER → 2025-05-16 09:51 | Outpatient (BNVA) | payer BC, MEDICAID, SELFPAY | PROVIDERS: Visit Provider Physician Assistant | DX: M17.12 Unilateral primary osteoarthritis, left knee (principal); M25.562 Pain in left knee; Z79.52 Long term (current) use of systemic steroids | CPT/HCPCS: 20610; J0665; J1100; J2003 ==